=== PATIENT | female | born 1965 | race Caucasian/White ===

== ENCOUNTER 2023-01-31 11:14 | Outpatient (OUT) | payer BC, SELFPAY ==
--- NOTE | 2023-01-31 11:28 | XR_ITS ---
The [address] [address] Patient Name: BART BUSBY MRN: [id number] date: 1965 Sex: F Assigned Patient Location: [facility] Current Patient Location: Accession/Order Number: [id number] Exam Date: 01/31/2023 11:45 Report Date: 02/01/2023 08:10 At the request of: VIVIENNE DOTY Procedure: XR foot RT min 3V PROCEDURE: XR foot RT min 3V HISTORY: pain in rt foot M79.671 ; chronic lateral right foot pain increasing in severity COMPARISON: XR foot right 08/01/2019 FINDINGS: BONES:Prominent calcaneal plantar spur. No fracture, dislocation, bone lesion. No significant joint space narrowing or irregularity. SOFT TISSUES:No visible soft tissue swelling. EFFUSION:None visible. OTHER: Negative. XR/XR foot RT min 3V IMPRESSION: 1. Large plantar spur of uncertain clinical significance. 2. No acute bone abnormality or significant degenerative joint disease. Electronically authenticated by: CAROLYN MÉNDEZ Date: 02/01/2023 08:10
== END 2023-01-31 11:15 | disposition home or self-care (01) ==
LOC: RAD 11:23
PROVIDERS: PCP Family Medicine; Visit Provider Family Medicine
DX: M79.671 Pain in right foot (principal)
CPT/HCPCS: 73630

== ENCOUNTER 2023-02-13 09:46 | Outpatient (OUT) | payer BC, SELFPAY ==
--- NOTE | 2023-02-13 | XR_ITS ---
The [address] [address] Patient Name: BART BUSBY MRN: [id number] date: 1965 Sex: F Assigned Patient Location: [facility] Current Patient Location: Accession/Order Number: [id number] Exam Date: 02/13/2023 09:50 Report Date: 02/14/2023 11:01 At the request of: SRIKANTH SOSA Procedure: XR foot RT min 3V PROCEDURE: XR foot RT min 3V COMPARISON: None. HISTORY: RIGHT FOOT PAIN FINDINGS: BONES:No acute fracture or dislocation. Mild degenerative change the first metatarsal-phalangeal joint. SOFT TISSUES:Negative. No visible soft tissue swelling. EFFUSION:None visible. OTHER: Limited, no lateral projection XR/XR foot RT min 3V IMPRESSION: No acute abnormality Electronically authenticated by: LEIDY MONSIVAIS Date: 02/14/2023 11:01
--- OUTSIDE RECORDS SUMMARY | 2023-02-13 09:49 | XMS_ITS | CCD ---
Author Name Unknown Address [address] [place] [address] Organization [facility] Care Team Providers Care Computer Game Tester Name Role Phone NONE, XXXX Primary Care Physician Unavailab lina DIA, DR PALAFOX Admitting Unavailable SOREN, DR PALAFOX Primary Care Unavailable SOREN, DR PALAFOX Consulting Unavailable SOREN, DR PALAFOX Attending Unavailable SOREN, DR PALAFOX Primary Care Unavailable SOREN, DR PALAFOX Consulting Unavailable SOREN, DR PALAFOX Attending Unavailable SOREN, DR PALAFOX Admitting Unavailable WEST, DR FORBES Consulting Unavailable MD Vivienne Dia Primary Care Provider [phone] PARAS Reed Emergency Provider Sim Reed Attending Unavailable Sim Reed Admitting Unavailable Vivienne Dia Primary Care Unavailable Medications Current Medications Medication Drug Class(es) Dates Sig (Normalized) Sig (Original) [id number] 200 actuat albuterol 0.09 mg/actuat metered dose inhaler (1 source) beta2-Adrenergic Agonist Start: 02-14-2022 Albuterol Sulfate Active 2 INH INHALATION Q6H February 14, 2022 12:00am administer with spacer predniSONE 20 mg oral tablet (1 source) Start: 02-14-2022 take 40 mg by mouth once daily at mealtime Prednisone Active 40 MG PO Daily February 14, 2022 12:00am administer with food or milk Problems Problem Classification Problem Date Documented Da te Episodic/Chronic Chronic obstructive pulmonary disease and bronchiectasis (1 source) Bronchitis; Translations: [Bronchitis, not specified as acute or chronic] 02-14-2022 Episodic Other screening for suspected conditions (not mental disorders or infectious disease) (4 sources) Encounter for screening mammogram for malignant neoplasm of breast; Translations: [ENC SCR MAMMO MALIG NEOPLASM BREAST] Onset: 01-12-2022 Episodic Unclassified (1 source) Cough, unspecified; Translations: [Cough, unspecified] Onset: 02-14-2022 Results Test Name Value Interpretation Reference Range Facility COVID CepheidOrdered By: Nahum Reed on 02-14-2022 SARS-CoV-2 (COVID-19) Ab IA Ql Negative Negative [facility] Comment on above: This is a duplicate Cepheid Xpert Xpress CoV-2/Flu/RSV Plus RNA by RT-PCR result to be used for statistical tracking purpose only. SARS-CoV-2 (COVID-19) RNA DEACON+probe Ql (Unsp spec) [facility] COVID-19 / Flu A/B / RSV PCR on 02-14-2022 SARS-CoV-2 (COVID-19) RNA DEACON+probe Ql (Unsp spec) COVID-19 Cepheid Result Negative for SARS-CoV-2 RNA by RT-PCR Flu A Cepheid Result Negative for Flu A RNA by RT-PCR Flu B Cepheid Result Negative for Flu B RNA by RT-PCR RSV Cepheid Result Negative for RSV RNA by RT-PCR COVID19 Blank Space Reference: Negative COVID19 Blank Space Cepheid Disclaimer The Cepheid Xpert Xpress CoV-2/Flu/RSV Plus has Cepheid Disclaimer not been FDA cleared or approved; this test has Cepheid Disclaimer been authorized by FDA under an EUA for use by Cepheid Disclaimer authorized laboratories; this test has been Cepheid Disclaimer authorized only for the simultaneous qualitative Cepheid Disclaimer detection and differentiation of nucleic acids from Cepheid Disclaimer SARS-CoV-2, influenza A, influenza B, and Cepheid Disclaimer respiratory syncytial virus (RSV), and not for any Cepheid Disclaimer other viruses or pathogens; and this test is only Cepheid Disclaimer authorized for the duration of the declaration that Cepheid Disclaimer circumstances exist justifying the authorization of Cepheid Disclaimer emergency use of in vitro diagnostic tests for Cepheid Disclaimer detection and/or diagnosis of COVID-19 under Cepheid Disclaimer Section 564(b)(1) of the Act, 21 U.S.C. 360bbb- Cepheid Disclaimer 3(b)(1), unless the authorization is terminated or Cepheid Disclaimer revoked sooner. PERFORMED BY: [place] [address] PATHOLOGIST FIRE SAFETY MANAGER BIANKA POWERS M.D. Normal [facility] Comment on above: Performed By: #### C EPHEID NEG, COVID19 FLU RSV #### [address] Cepheid COVID PCR Negativeon 02-14-2022 SARS-CoV-2 (COVID-19) RNA DEACON+probe Ql (Unsp spec) Negative Normal Negative [facility] Comment on above: Result Comment: This is a duplicate Cepheid Xpert Xpress CoV-2/Flu/RSV Plus RNA by RT-PCR result to be used for statistical tracking purpose only. PERFORMED BY: [place] [address] PATHOLOGIST FIRE SAFETY MANAGER BIANKA POWERS M.D. Performed By: #### C EPHEID NEG, COVID19 FLU RSV #### [address] XR chest 2V*on 02-14-2022 XR chest 2V* [facility] [place] [address] XRay Report Signed Patient: Bart Busby MR#: [id number] 1442 : 1965 Acct:[id number] Age/Sex: 56 / F ADM Date: 02/14/22 Loc: ER Room: Type: PRE ER Attending Dr: Copies to: Sim Reed APRN Ordering Provider: Sim Reed APRN Date of Service: 02/14/22 XR/XR chest 2V*: Shortness of Breath/Dyspnea Chest 2 views CLINICAL HISTORY: Shortness of breath. COMPARISON: None FINDINGS: Heart normal in size. Lingular atelectasis/scarring . No consolidation pneumothorax pleural effusion or free air. XR/XR chest 2V* IMPRESSION: LINGULAR ATELECTASIS/SCARRING . NO CONSOLIDATION TO SUGGEST PNEUMONIA. Impression dictated by: Oswaldo Woodruff Jr., D.OToribio02/14/2022 11:53 AM Dictation Location: [place] [address] Transcribed By: [facility] 02/14/22 1153 Dictated By: Oswaldo Woodruff Jr, DO 02/14/22 1152 Signed By: 02/14/[address] [facility] MG MAMM SCREEN 3D JUSTINE CADon 01-12-2022 MG MAMM SCREEN 3D JUSTINE CAD Patient: BART BUSBY Exam Date: 01/12/2022 : 1965 Gender:F Ordering : DR VIVIENNE DIA . Admission #: [id number] Family : Order #: [id number] CLICK HERE TO VIEW EXAM RADIOLOGY REPORT PROCEDURE: MAMMOGRAM SCREENING 3D BILATERAL CAD COMPARISON: MG MAMM JUSTINE SCRN W CAD DIG, 08/17/2015. MG MAMM SCREEN 3D JUSTINE CAD, 10/01/2020. INDICATIONS: Screening mammography Calculator Name NCI Breast Cancer Risk Assessment Tool 5 Year Breast Cancer Risk 1.10% Lifetime Breast Cancer Risk 6.30% Personal Breast Cancer No Personal Ovarian Cancer No Treatments None Family Cancers Aunt-paternal with breast cancer at age 60; Aunt-paternal with breast cancer at age 70; Mother with lung cancer at age 62. LOCATION: [facility] BREAST COMPOSITION: Heterogeneously dense,which may obscure small masses. FINDINGS: DIAGNOSTIC CATEGORY 1--NEGATIVE. NO CHANGE FROM COMPARISON ASSESSMENT. Scattered benign-appearing calcifications are present. Scattered benign-appearing lymph nodes are present. RIGHT BREAST: No significant suspicious finding. LEFT BREAST: No significant suspicious finding. RECOMMENDATIONS: ROUTINE MAMMOGRAM AND CLINICAL EVALUATION IN 12 MONTHS. PLEASE NOTE: A NORMAL MAMMOGRAM DOES NOT EXCLUDE THE POSSIBILITY OF BREAST CANCER. A CLINICALLY SUSPICIOUS PALPABLE LUMP SHOULD BE BIOPSIED. Dictated by: Avni Gonzalez MD on 01/12/2022 at 14:34 Approved by: Avni Gonzalez MD on 01/12/2022 at 14:36 Normal [facility] INSULINon 01-06-2022 Insulin 11.4 uIU/mL Normal 2.6-24.9 [facility] Comment on above: Performed By: #### I NSULIN #### [facility] [address] [place] [address] Dr. Irving Salgado CBC AUTO DIFFon 01-04-2022 BASO # 0.1 103/ul Normal 0.0-0.1 [facility] Comment on above: Performed By: #### C BC #### [facility] [address] [place] [address] Dr. Irving Salgado Basophils/100 WBC (Bld) 0.8 % Normal 0.2-2.0 [facility] Comment on above: Performed By: #### C BC #### [facility] [address] [place] [address] Dr. Irving Salgado EO # 0.1 103/ul Normal 0.0-0.7 [facility] Comment on above: Performed By: #### C BC #### [facility] [address] [place] [address] Dr. Irving Salgado Eosinophils/100 WBC (Bld) 2.2 % Normal 0.9-7.0 [facility] Comment on above: Performed By: #### C BC #### [facility] [address] [place] [address] Dr. Irving Salgado Erythrocyte distribution width (RBC) [Ratio] 13.2 % Normal 11.0-15.0 [facility] Comment on above: Performed By: #### C BC #### [facility] [address] [place] [address] Dr. Irving Salgado Hematocrit (Bld) [Volume fraction] 42.1 % Normal 36.0-48.0 [facility] Comment on above: Performed By: #### C BC #### [facility] [address] [place] [address] Dr. Irving Salgado Hemoglobin (Bld) [Mass/Vol] 13.7 g/dL Normal 12.0-16.0 [facility] Comment on above: Performed By: #### C BC #### [facility] [address] [place] [address] Dr. Irving Salgado IG # 0.03 10e3/ul Normal 0.00-0.03 [facility] Comment on above: Performed By: #### C BC #### [facility] [address] [place] [address] Dr. Irving Salgado IG % 0.5 % Normal 0.0-0.5 [facility] Comment on above: Performed By: #### C BC #### [facility] [address] [place] [address] Dr. Irving Salgado LYMPH # 2.0 103/ul Normal 1.2-3.8 [facility] Comment on above: Performed By: #### C BC #### [facility] [address] [place] [address] Dr. Irving Salgado Lymphocytes/100 WBC (Bld) 31.7 % Normal 20.5-60.0 [facility] Comment on above: Performed By: #### C BC #### [facility] [address] [place] [address] Dr. Irving Salgado MANUAL DIFF REQ NO Normal [facility] Comment on above: Performed By: #### C BC #### [facility] [address] [place] [address] Dr. Irving Salgado MCH (RBC) [Entitic mass] 30.2 pg Normal 26.7-34.0 [facility] Comment on above: Performed By: #### C BC #### [facility] [address] [place] [address] Dr. Irving Salgado MCHC (RBC) [Mass/Vol] 32.5 g/dL Normal 29.9-35.2 [facility] Comment on above: Performed By: #### C BC #### [facility] [address] [place] [address] Dr. Irving Salgado MCV (RBC) [Entitic vol] 92.9 fL Normal 81.0-99.0 [facility] Comment on above: Performed By: #### C BC #### [facility] [address] [place] [address] Dr. Irving Salgado MONO # 0.6 103/ul Normal 0.3-0.8 [facility] Comment on above: Performed By: #### C BC #### [facility] [address] [place] [address] Dr. Irving Salgado Monocytes/100 WBC (Bld) 9.9 % Normal 1.7-12.0 [facility] Comment on above: Performed By: #### C BC #### [facility] [address] [place] [address] Dr. Irving Salgado NEUT # 3.4 103/ul Normal 1.4-6.5 [facility] Comment on above: Performed By: #### C BC #### [facility] [address] [place] [address] Dr. Irving Salgado Neutrophils/100 WBC (Bld) 54.9 % Normal 43.0-75.0 [facility] Comment on above: Performed By: #### C BC #### [facility] [address] [place] [address] Dr. Irving Salgado Platelet mean volume (Bld) [Entitic vol] 10.0 fL Normal 9.5-13.5 [facility] Comment on above: Performed By: #### C BC #### [facility] [address] [place] [address] Dr. Irving Salgado PLT 252 103/ul Normal 150-450 [facility] Comment on above: Performed By: #### C BC #### [facility] [address] [place] [address] Dr. Irving Salgado RBC 4.53 106/ul Normal 4.20-5.40 [facility] Comment on above: Performed By: #### C BC #### [facility] [address] [place] [address] Dr. Irving Salgado WBC 6.2 103/ul Normal 4.0-11.0 [facility] Comment on above: Performed By: #### C BC #### [facility] [address] [place] [address] Dr. Irving Salgado FREE THYROXINE INDEX T7on FTI 2.31 Normal 1.30-4.50 [facility] Comment on above: Performed By: #### T SH, T7, LIPID, CMP #### [facility] [address] [place] [address] Dr. Irving Salgado T3U 30.0 % Normal 30.0-39.0 [facility] Comment on above: Performed By: #### T SH, T7, LIPID, CMP #### [facility] [address] [place] [address] Dr. Irving Salgado T4 [Mass/Vol] 7.70 ug/dL Normal 4.80-13.90 [facility] Comment on above: Performed By: #### T SH, T7, LIPID, CMP #### [facility] [address] [place] [address] Dr. Irving Salgado GLYCOHEMOGLOBIN A1Con 2021 ADA RECOMMENDATION SEE BELOW Normal [facility] Comment on above: Result Comment: ADA RECOMMENDED LIMIT 4.0 - 6.0 ADA THERAPEUTIC TARGET < 7.0 ACTION SUGGESTED > 7.0 Performed By: #### A 1C #### [facility] [address] [place] [address] Dr. Irving Salgado Glucose [Mass/Vol] 117 mg/dL Normal [facility] Comment on above: Performed By: #### A 1C #### [facility] [address] [place] [address] Dr. Irving Salgado HbA1c (Bld) [Mass fraction] 5.7 % Normal 4.5-6.2 [facility] Comment on above: Performed By: #### A 1C #### [facility] [address] [place] [address] Dr. Irving Salgado LIPID PROFILEon 01-04-2022 CHOL-HDL RATIO NORM SEE BELOW Normal [facility] Comment on above: Result Comment: 3.3 - 4.4 LOW RISK 4.4 - 7.1 AVERAGE RISK 7.1 - 11.0 MODERATE RISK >11.0 HIGH RISK Performed By: #### T SH, T7, LIPID, CMP #### [facility] [address] [place] [address] [address] Irving Salgado Cholesterol [Mass/Vol] 230 mg/dL Critically high <=200 [facility] Comment on above: Performed By: #### T SH, T7, LIPID, CMP #### [facility] [address] [place] [address] [address] Irving Salgado Cholesterol in HDL [Mass/Vol] 68 mg/dL Critically high 40-60 [facility] Comment on above: Performed By: #### T SH, T7, LIPID, CMP #### [facility] [address] [place] [address] [address] Irving Salgado Cholesterol in LDL [Mass/Vol] 143.8 mg/dL Normal [facility] Comment on above: Performed By: #### T SH, T7, LIPID, CMP #### [facility] [address] [place] [address] [address] Irving Salgado Cholesterol.total/Ch olesterol in HDL [Mass ratio] 3.4 {ratio} Normal [facility] Comment on above: Performed By: #### T SH, T7, LIPID, CMP #### [facility] [address] [place] [address] [address] Irving Salgado HDL NORMAL > or = 60 mg/dl - LOW CARDIOVASCULAR RISK <40 mg/dl - HIGH CARDIOVASCULAR RISK Normal [facility] Comment on above: Performed By: #### T SH, T7, LIPID, CMP #### [facility] [address] [place] [address] [address] Irving Salgado LDL CALC NORMAL SEE BELOW Normal [facility] Comment on above: Result Comment: <100 mg/dl OPTIMAL 100 - 129 mg/dl NEAR OR ABOVE OPTIMAL 130 - 159 mg/dl BORDERLINE HIGH 160 - 189 mg/dl HIGH >190 mg/dl VERY HIGH Performed By: #### T SH, T7, LIPID, CMP #### [facility] [address] [place] [address] [address] Irving Salgado Triglyceride [Mass/Vol] 91 mg/dL Normal <=150 [facility] Comment on above: Performed By: #### T SH, T7, LIPID, CMP #### [facility] [address] [place] [address] [address] Irving Salgado VLDL CALC 18.2 mg/dL Normal [facility] Comment on above: Performed By: #### T SH, T7, LIPID, CMP #### [facility] [address] [place] [address] [address] Irving Salgado PROF 14(COMP METB)on 022 Albumin [Mass/Vol] 3.7 g/dL Normal 3.4-5.0 [facility] Comment on above: Performed By: #### T SH, T7, LIPID, CMP #### [facility] [address] [place] [address] [address] Irving Salgado Albumin/Globulin [Mass ratio] 1.0 {ratio} Normal [facility] Comment on above: Performed By: #### T SH, T7, LIPID, CMP #### [facility] [address] [place] [address] Dr. Irving Salgado ALP [Catalytic activity/Vol] 100 U/L Normal 46-116 [facility] Comment on above: Performed By: #### T SH, T7, LIPID, CMP #### [facility] [address] [place] [address] [address] Irving Salgado ALT [Catalytic activity/Vol] 17 U/L Normal 14-59 [facility] Comment on above: Performed By: #### T SH, T7, LIPID, CMP #### [facility] [address] [place] [address] [address] Irving Salgado Anion gap [Moles/Vol] 10.1 mmol/L Normal [facility] Comment on above: Performed By: #### T SH, T7, LIPID, CMP #### [facility] [address] [place] [address] [address] Irving Salgado AST [Catalytic activity/Vol] 15 U/L Normal 15-37 [facility] Comment on above: Performed By: #### T SH, T7, LIPID, CMP #### [facility] [address] [place] [address] [address] Irving Salgado Bilirubin [Mass/Vol] 0.5 mg/dL Normal 0.2-1.0 [facility] Comment on above: Performed By: #### T SH, T7, LIPID, CMP #### [facility] [address] [place] [address] [address] Irving Salgado Calcium [Mass/Vol] 9.3 mg/dL Normal 8.5-10.1 [facility] Comment on above: Performed By: #### T SH, T7, LIPID, CMP #### [facility] [address] [place] [address] Dr. Irving Salgado Chloride [Moles/Vol] 102 mmol/L Normal 98-107 [facility] Comment on above: Performed By: #### T SH, T7, LIPID, CMP #### [facility] [address] [place] [address] Dr. Irving Salgado CO2 [Moles/Vol] 30.1 mmol/L Normal 21.0-32.0 [facility] Comment on above: Performed By: #### T SH, T7, LIPID, CMP #### [facility] [address] [place] [address] Dr. Irving Salgado Creatinine [Mass/Vol] 0.93 mg/dL Normal 0.55-1.02 [facility] Comment on above: Performed By: #### T SH, T7, LIPID, CMP #### [facility] [address] [place] [address] Dr. Irving Salgaod EGFR-AF PAPUA [place] >60 Normal >=60 [facility] Comment on above: Performed By: #### T SH, T7, LIPID, CMP #### [facility] [address] [place] [address] Dr. Irving aSlgado EGFR-NON AF P[place] >60 Normal >=60 [facility] Comment on above: Performed By: #### T SH, T7, LIPID, CMP #### [facility] [address] [place] [address] Dr. Irving Salgado Globulin (S) [Mass/Vol] 3.7 g/dL Normal [facility] Comment on above: Performed By: #### T SH, T7, LIPID, CMP #### [facility] [address] [place] [address] Dr. Irving Salgado Glucose [Mass/Vol] 92 mg/dL Normal 74-106 [facility] Comment on above: Performed By: #### T SH, T7, LIPID, CMP #### [facility] [address] [place] [address] [address] Irving Salgado Potassium [Moles/Vol] 4.2 mmol/L Normal 3.5-5.1 [facility] Comment on above: Performed By: #### T SH, T7, LIPID, CMP #### [facility] [address] [place] [address] [address] Irving Salgado Protein [Mass/Vol] 7.4 g/dL Normal 6.4-8.2 [facility] Comment on above: Performed By: #### T SH, T7, LIPID, CMP #### [facility] [address] [place] [address] Dr. Irving Salgado Sodium [Moles/Vol] 138 mmol/L Normal 136-145 [facility] Comment on above: Performed By: #### T SH, T7, LIPID, CMP #### [facility] [address] [place] [address] Dr. Irving Salgado Urea nitrogen [Mass/Vol] 18.0 mg/dL Normal 7.0-18.0 [facility] Comment on above: Performed By: #### T SH, T7, LIPID, CMP #### [facility] [address] [place] [address] Dr. Irving Salgado Urea nitrogen/Creatinine [Mass ratio] 19.4 mg/mg Normal [facility] Comment on above: Performed By: #### T SH, T7, LIPID, CMP #### [facility] [address] [place] [address] Dr. Irving Salgado TSHon 01-04-2022 TSH 2.920 uIU/mL Normal 0.358-3.740 [facility] Comment on above: Performed By: #### T SH, T7, LIPID, CMP #### [facility] [address] [place] [address] Dr. Irving Salgado XR Foot Complete Right*on XR Foot Complete Right* CLINICAL HISTORY: Pain COMPARISON: None available. FINDINGS: AP, lateral and oblique views of the left foot demonstrate no evidence of a fracture, dislocation, bone or joint abnormality. There is a small plantar calcaneal spur. IMPRESSION: NEGATIVE LEFT FOOT. Report reported and signed by CARINA VIZCARRA on 10/05/2021 1331 Normal [facility] Crane Crew Supervisor Coding Summary.on 05-23-2021 Coding Summary. CD:[id number] Gh0bWw+PGhlYWQ+PE1FV TIxC64ixOUnbZ2TU8jTR B6IUWKETAWTOJ4AYP6gt WJ4JOztR1LxksCl QbgxuVXeVH16DOe4HML1 vMefBKfytF3riNGkP4q0 BiAgNP37nZ12ZLunXADo ZwQ8SwPkrogjwABa Q0emFlPaaMYoFed+PHRh YmxlIHdpZHRoPScxMDAl DjZpyZmaDH5jBv2zEMLf LWNvbGxhcHNlOiBj f9ulXLOmFLbvAT9cyUlo Z6YthDF9OYPku9z8Yy59 dHI+KYEeJEX1aLxwVRjf p451YlGjw2mkMIE8 yKGsYKqkVKP4U53ql7S7 SYCiAQMvHIO7vQV8sM4t hLlfdxtvV3QffQSnLnQ0 RSY3zCFygM7kiEnx bchmxX9kDgx+D07NLC5J BETEZN8PYfg3D7RgAgxp dHI+KF11PWVlVU82uAKb dNEpm4dqfRy6JrGe IADxLMM3hLopCMgam2Ic KBFeM65ccPRpo4Y7TCIg mLkvkKPpLqKaqHZ7sM5m ALfrzpkxd0osntgi Sxyro9wgsp10iR86Z99b RIykWJTdITH1TZDsTRZp bRvwyz5nnU3sLy8+IDxj d5oks0xtsYx1ShIp BDGjsbZhvJvtJDP7x4Er Uy48G6PucQcyr6HyHep3 kk13nHRjg4T3nTX0TTmc TELffA6wLNavQlK1 PTEbBrHcxC03jQFjGWbs Ey0jqIveuLhcWI7yHTZi ujtgGSPnzU9aIGTzbVWs tQuzWF2qUPJwjljk a237AuSpNHC2EYAdvBLn X2ApnN8vQjVzWDQrARJi F7KedDBqRHesV531WZsv VhH6DPRagmRmR1Uu FILntNrfSiO4p0E9Ou1M b1KkikkxDPG8KDfvSNN5 JgOkTtNmEvT4Q2KzJgz0 PLSevDfqZP3yF1Yy PQQvtyyaqbhsgZJ3AWXt KFMzgD54kJIjHJybEy8m a5A5h271QHRsTJZjbP42 Eu5jnQiaIWAiaGAC eW0fvudao5bylohyElXz GPYvRGx4WXw2DVRxjXuz XpJgDRT5NdS7XRE6kJBv pQ9vdFkqwufwqL9c Oyc+Y65wiR4kPOU0QOU6 jgzrGXKvlkXhBS14KJ17 J5AlSgdndGTjfDG+PGRp dqTprKqeXW3bPnCo h9qqv5DqMAedX4HxXDIg FMpoSrc4RYHlVER8lQX8 eI4zHTOrRTcti6F2wSC1 Z8PvssNwqm6je7fw UHLeUFvgP81hjXMik1A5 XVFfyWS7IQPdrExeQmUm tB45Xwu+KWIhgFegz0Vg Mdgmq4oxy6fzlKg5 IjMwJSIgdmFsaWduPSJ0 l8UuZe13W78eMMysGXUe QJUvKWNeEHFeaQvwpz2m sD6lRl1+PGNvbCB3 aAW7bH6gQPUsTgK6NDfn G560UpOvbEFpZiibo6mk a0svjKs7QbIxULMuqyIl hIheGGV1k0KwHw83 C38gEDdiNQKrLMMxTLYd ICNzpVlkmz4qoJ6hHm6+ RM4as0cyet68rU17pBF+ LGPxGEF3bHjwJPnr IPLwdF1fECzeUeQ6BEXa WyYywJ59aYOtTYhuAi3s nXqmkIcbXH3kUTYzfazq q904PwLoe6fpUKNh iJSlAYcbWBA7D10tm3L2 WSJfDJNjXIK8cQW5pF8d bGlnbjogbGVmdDsgdmVy lQfiUWlxXBdlU220 IHRvcDsnPlBhdGllbnQg FnJzTPd6W0ZgCkn8SSQk bRdeIH1gbMUyPNevXp2z zKmvnZqrMJ4oHNPk hqpjl875BvJuf2shOZZr yQBjKZygMDG8L64fz9Y5 DJBbUBGaEFA2qPU8fF2z bGlnbjogbGVmdDsg urZptDdpWKfvEEmrT022 IHRvcDsnPkJpcnRoIERh nFY7SZ46PI97mUKfm8P1 dXQ9B2BxECZdtqwb mziidEX2NGYnTIDabO35 My5dmCzxXz2oGZUjXPB3 AWTeaBVaU5SbsG8fHxVe TUGeKDCfW7DkvDSu MOjzK007YHxtXuZ6RUHl reXwC1EnDRIvtVvkTsI4 u7R5Mp1MK9E7JR94UQ16 cMGiy1Z3nAS1P7Jw ZNYbkfylzjvfvLK7MPDh DYTqbM87Og9caCorFo2l HSMdBAJ7RFSkrLVjW8Va fP3fNnWcHFYjWDOl S0YcgCTnUEanB903VEax QjU4RFBtaeYeR0FsBSMk eRspQjX8q5D6Sp4QVDf2 MD89YK55yYPau6D1 tDY4X4WoYWSttauuzewc rHR3RLFsYAAdtD89Ly6s zKbuBg8lLVZtKBV7SGJj eXAfX1CocW5lJaVd YFHnZOXpN6JtsOWaNPky P384DYerPtT2YUSorgWc R8WkMPLtlBvaGhF9u1Z7 Iy9BVMGmYY84LTI1 sKG2IE30NV25J0MhYcfq dGFibGU+PHRhYmxlIHdp ZHRoPScxMDAlJyBzdHls LT7jBt0dXKXuYWOx qRfxdYMzQhGzg4vdPLYp FCaoEX3deDyvY2EsqZP5 RIPvh6g1Wc28C76bW1Xq dXA+TVXtgFM5wTE3 yJ6dRtAtZwU8YEgaH405 IaKozVIiOptlz1htw6qf vDx4BcT1NNXpjkIbrYch KLY6f8UbNo44O10e IHdpZHRoPSIxNSUiIHZh gEqlcv1juX4jPd9+PGNv eJV7yDD7mO7tGvLmMxL1 RFygN138VdPltHAl Fvoob5xnt0ukoHk6DkHy TAIltgQbcLviAWU1y5Vx Ph06Z4JzxIjfx2CbEmb1 dk85qRQeo0S1tKC5 V4UhEHTuwrkeyGBjtLwj YN0qSLKoyoaiZIFtvJ8l BUIqZ7s7TxZjFnJ0UBky B3JgqfS3IUPqjVPj NIbuOFR9T03wu0G3GSRi GJRiCXU7pSE8lF0naWto bjogbGVmdDsgdmVydGlj ARgaNAtdB945XCMv kHkwEWMfcZ6uYEHrmFNx gDdvLF6aRVAizrnmQlsR W91VBydvXNZHJIcQYjWG XA86VN23gHEke5J8 bXM2S7AtVVHphrnicgop tWK4NDAgNHUuvU01aQYb SAfqWm9bn9N5t812HFHj OUDliO61Ui5fdVyv MMHeiBVBjS4vmeekf0zt nuhlLzKkBRHeWEx3TOn9 TBOitKkeBuWkAIE0LvW6 UGF6fWCehS4fcCcs xoqpaS9dAqw+MDIvMTYv WFu2CBbcjEX+PHRkIHN0 zPvmZKmvGOLqfF4bLJEs E2q6HyRfSfM4KFht E2ZfSNYvnmuhPb76fE9q OuYjSeC9NQamQ6WxcyS2 MINpuMCfNQcaEHQ0P46c r0M7VBEvQROsSFQ3 aFT9wO4ooQoguqzlvECr dDsgdmVydGljYWwtYWxp E955DWWsoYmjJdN3YGxg SWYbPY86GV08vGQu i3R0tJK8H7GuZFQxjgom saefhQQ2RCJwHZVxqJ77 kPYyMWbmNs8dq9I4k047 RCIhQGBcwU19Kl6f eGfuXISscSVVhH2urjrz q8zsvkmeLkLnPTZtQOw6 TSm6HHHidWcdLbXeYBJ5 OfB7ITT3mFOryQ4q wJabxnsyzC8vSlu+RmVt PJsrKM28MI64gCKyo5X1 bCK0G7EqRCTgbpmleqjh sGZ3NSAdSZUujD24 rFYbLSsoJg2if8Y3s829 FTHiFSJvvR71Yz8flEbr SWUjrIEXjK5nmmvfk7rv cjogIzAwMDAwMDt0 WCy6XQLeaOkgPxZiUFD1 RmW2UFG3dTVkfU0nvOdc qzlbyH2zKnu+TGFiIERy g6Wvo5RvAF97IK19 I9HpVsftnDJeeIF+PHRh YmxlIHdpZHRoPScxMDAl HaCihNptXI6vRw0mEKXd LWNvbGxhcHNlOiBj o4baVCHiLYzjTF3cyUhz D6LitVF0RUItq3u6Ox91 V27sV4RlxJW+PGNvbCB3 uBT3pQ7tBeReHlY9 VBhzS937HlEtpNIjSjph n3bve2zrnVk0XpPsLSIg seZaeYkyAPV1u4PhId39 J48nCYmkZHGuYGSx WLFiWTRhvFzxsw3lkB2g Ii8+CJIenPR6uOO2xK0m FzSkFyB9LXisY006GsAt vCHcSjnuG99sG1Zj dXA+FOJmWgj8KIJtkTah OE2lfYAmHFtlEj1wXPR9 EfWcEwWfHQgdG5BlVUPe ckwqxouusXC3STWf GEIkdC24Bk8jtWnzSi9h EJSrWCM8HTYobDWrK7Kl iD2qKwOsUJOwSNCeR9Mi wSTiRLwvV451NLqs UtH4UMElftVkC5BjLQIr aHhtLlC1s6Y7Ma9PbFis xZKeIX0hLdQgACf3Q5Ax Hcn0XFBsdMpdGU8y pHTsPKqqOh5fzEezuZbx WB6aRNHiqzfpu331DnQn t5jkMRHjhMQaJZubSRD9 Y21zc5E6OGRaPRDo PFE3yYB7iK5grFyjsquk bGVmdDsgdmVydGljYWwt BBqxK836DWCncNylTaYK Adp8K9YkFyp1GHSh kGnvKZ0qrKLhUEexSz0i cWhbkVktMW9bHKBaduab t128GlHer5snCJSohESe OXwuDWX9Q18hi7S6 SYAbMAEjPKE1nBF7kA9f bGlnbjogbGVmdDsgdmVy qEhfVHjqWPwpT277FJSl uKwrNm6TLuw4U8Va Pgi4EPIwtZniRI7pyCUr PIshKx2qdQowsBkgWG8e MXQjubgeq948SrDaj6sv IDEwcHQgVGltZXM7 W25kv2G5BSMqLVXxPUA5 fSG0gT5egKgqpvrhtTVr dDsgdmVydGljYWwtYWxp X464PZSviFqxZoHb eWVyOjwvdGQ+WW09jp78 E8MgLethMtv6SAWvEEL3 vSD1wG0dUHKnMZgky7Y4 mWE1J4NrnmErdl0l b2xs (more content not included)... Normal [facility] PAP [id number] 05-17-2021 Cytology report Cyto stain Doc (Cvx/Vag) Note Invalid Interpretation Code [facility] Comment on above: Result Comment: TEST S RESULT FLAG UNITS REF RANGE LAB Clinician Provided Cytology Information Source.............Endocervix No. of containers..01 ThinPrep Vial DIAGNOSIS: 01 NEGATIVE FOR INTRAEPITHELIAL LESION OR MALIGNANCY. Specimen adequacy: 01 Satisfactory for evaluation. Endocervical and/or squamous metaplastic cells (endocervical component) are present. Performed by: Tran Hernandez, [employer] . 01 Note: Note 01 The Pap smear is a screening test designed to aid in the detection of premalignant and malignant conditions of the uterine cervix. It is not a diagnostic procedure and should not be used as the sole means of detecting cervical cancer. Both false-positive and false-negative reports do occur. Test Methodology: Note 01 This liquid based ThinPrep(R) pap test was screened with the use of an image guided system. FLAG LEGEND: L-Low Normal,H-High Normal,LL-Alert Low,HH-Alert High <-Panic Low,>-Panic High,A-Abnormal,AA-Critical Abnormal Performed at: [address] [id number] Geri Mora MD, Performed By: #### 1 [id number] #### [facility] [address] [place] [address] HPV 16+18+31+33+35+39+45 +51+52+56+58+59+66+6 8 DNA Probe+sig amp Ql (Cvx) Negative Invalid Interpretation Code Negative [facility] Comment on above: Result Comment: This nucleic acid amplification test detects fourteen high-risk HPV types (16,18,31,33,35,39,45,51,52,56,58,59,66,68) without differentiation. Performed at: [facility] [id number] MD Morgan Nevarez Performed at: =G [facility] [id number] MD Morgan Nevarez Performed By: #### 1 [id number] #### [facility] [address] [place] [address] PAP [id number] 05-11-2021 Collection Technique BRUSH-SPATULA Normal [facility] Comment on above: Performed By: #### 1 [id number] #### [facility] [address] [place] [address] Gynecological Body Site ENDOCERVIX Normal [facility] Comment on above: Performed By: #### 1 [id number] #### [facility] [address] [place] [address] Physician Orderon 05-11-2021 Physician Order [id number] 6#[id number]:127 Normal [facility] Vital Signs Date Time Vital Sign Value Performing Clinician Srikanth gant 02-14-2022 13:06-0500 Heart rate 93 /min MD Vivienne Dia Work Phone: [facility] 02-14-2022 13:06-0500 SaO2% (BldA) [Mass fraction] 95 % MD Vivienne Dia Work Phone: [facility] 02-14-2022 10:50-0500 Body temperature 98.3 [degF] MD Vivienne Dia Work Phone: [facility] 02-14-2022 10:50-0500 Diastolic blood pressure 84 mm[Hg] MD Vivienne Dia Work Phone: [facility] 02-14-2022 10:50-0500 Respiratory rate 20 /min MD Vivienne Dia Work Phone: [facility] 02-14-2022 10:50-0500 Systolic blood pressure 131 mm[Hg] MD Vivienne Dia Work Phone: [facility] 02-14-2022 10:49-0500 Body height 167.64 cm MD Vivienne Dia Work Phone: [facility] 02-14-2022 10:49-0500 Body weight 94.75 kg MD Vivienne Dia Work Phone: [facility] Encounters Encounter Date Encounter Type Care Provider Facility Start: 02-14-2022 End: 02-14-2022 Emergency department patient visit Sim Reed Facility:[facility] Start: 02-14-2022 End: 02-14-2022 Emergency department patient visit MD Vivienne Dia Work Phone: [facility] Work Phone: Start: 01-12-2022 End: 01-13-[address] VIVIENNE DIA Facility: Start: 01-09-2022 Encounter for genera l adult medical examination without abnormal findings DR VIVIENNE DIA [facility] Start: 01-04-2022 End: 01-05-[address] VIVIENNE DIA Facility:[facility] Start: 01-04-2022 End: 01-05-2022 Encounter for general adult medical examination without abnormal findings DR VIVIENNE DIA Facility:[facility] Start: 05-11-2021 End: 05-11-2021 Lab Drop off Ming J S[facility] Procedures Date Procedure Procedure Detail Performing Clinician Start: 02-14-2022 SARS-CoV-2, Influenz a & RSV (PCR) MD Vivienne Dia Work Phone: Start: 02-14-2022 Plain chest X-ray MD Saeed Work Phone: Plan of Treatment Date Care Activity Detail Author Patient Education Acute Bronchitis, Adult (DC) [facility] Work Phone: Patient referral [facility] Work Phone: Payers Date Payer Category Payer Self-pay 1965 Unknown [id number] [id number] [id number] 1965 Unknown [id number] [id number] 1961 Unknown [id number] Unknown [id number] [id number] Social History Date Type Detail Facility Tobacco smoking status [facility] Sex Assigned At Female [facility] Start: 02-14-2022 Tobacco smoking stat us NHIS Never smoked tobacco (finding) [facility] Start: 1965 Sex Assigned At Female [facility] Evaluation + Plan note 05-11-2021 Note Date & Type Note Facility 05-11-2021 Evaluation + Plan note Diagnostic Tests PendingPAP w/HPV 05/11/21 [facility] Evaluation note Note Date & Type Note Facility Evaluation note No assessment information availa ble [facility] Work Phone: Hospital course Narrative Note Date & Type Note Facility Hospital course Narrative No data available for this section [facility] Discharge instructions Note Date & Type Note Facility Hospital Discharge instructions No data available for this section [facility] Summary Purpose Family History No Family History Records FoundNo Family History Records FoundNo Family History Records FoundNo Family History Records Found Advance Directives No Advanced Directives Records Found Advance Directive Response Recorded Date/ Time Advance Directives No February 14, 2022 12:01pm Chief Complaint and Reason for Visit Chief Complaint cough,congestion Additional Source Comments INFORMATION SOURCE (unrecogn ized section and content) DATE CREATED AUTHOR 05/24/2021 [facility] DATE CREATED AUTHOR AUTHOR'S ORGANIZ ATION 10/08/2021 [facility] dical Specialist DATE CREATED AUTHOR AUTHOR'S ORGANIZ ATION 01/18/2022 [facility] pital DATE CREATED AUTHOR AUTHOR'S ORGANIZ ATION 02/27/[address] [facility] Care Teams (unrecognized sec tion and content) Team Status: Inactive Member Role Status Dates Vivienne Dia MD Primary Care Provider Active Sim Reed APRN Emergency Provider Active Team Status: Active Member Role Status Dates Vivienne Dia MD Primary Care Provider Active Goals (unrecognized section and content) Goals may be documented in a n alternate section FOR RECORDS PERTAINING TO PATIENTS WHO ARE OR HAVE BEEN ENROLLED IN A CHEMICAL DEPENDENCY/SUBSTANCEABUSE PROGRAM, SOME INFORMATION MAY BE OMITTED. This clinical summary was aggregated from multiple sources. Caution should be exercised in using it in the provision of clinical care. This summary normalizes information from multiple sources, and as a consequence, information in this document may materially change the coding, format and clinical context of patient data. In addition, data may be omitted in some cases. CLINICAL DECISIONS SHOULD BE BASED ON THE PRIMARY CLINICAL RECORDS. [facility] [employer] provides no warranty or guarantee of the accuracy or completeness of information in this document.
== END 2023-02-13 09:47 | disposition home or self-care (01) ==
LOC: RAD 09:46
PROVIDERS: PCP Family Medicine; Visit Provider Physician Assistant
DX: M79.671 Pain in right foot (principal)
CPT/HCPCS: 73630

== ENCOUNTER 2023-04-04 07:31 | Outpatient (OUT) | payer BC, SELFPAY ==
--- NOTE | 2023-04-04 07:33 | MR_ITS ---
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 Noncontrast MRI of the right foot. FINDINGS: Extensor, flexor and peroneal tendons are intact. Achilles tendon is thickened distally, consistent with Achilles tendinosis. (Sagittal PD fat-sat image 14) Plantar fascia is intact. No significant degeneration at the ankle joint or mid foot. Mild degeneration at the second tarsometatarsal joint. Normal alignment of the metatarsophalangeal joints and interphalangeal joints. Normal signal of the plantar musculature. No significant subcutaneous soft tissue edema about the foot or ankle. Anterior talofibular, posterior talofibular and calcaneofibular ligaments are intact. Anterior and posterior syndesmotic ligaments are intact. Deltoid ligament fibers are intact. MR/MR foot RT wo con IMPRESSION: 1. Thickening of the Achilles tendon, consistent with Achilles tendinosis. 2. Extensor, flexor and peroneal tendons are intact. 3. No acute ligamentous abnormality. 4. Mild degeneration at the second tarsometatarsal joint. 5. Other findings as described. Electronically authenticated by: ENID CURRY Date: 04/04/2023 22:49
--- OUTSIDE RECORDS SUMMARY | 2023-04-04 07:33 | XMS_ITS | CCD ---
Author Name Unknown Address [address] [place] [address] Organization [facility] Care Team Providers Care Power Equipment Mechanics Instructor Name Role Phone NONE, XXXX Primary Care Physician Unavailab lina DIA, DR PALAFOX Admitting Unavailable SOREN, DR PALAFOX Primary Care Unavailable SOREN, DR PALAFOX Consulting Unavailable SOREN, DR PALAFOX Attending Unavailable SOREN, DR PALAFOX Primary Care Unavailable SOREN, DR PALAFOX Consulting Unavailable SOREN, DR PALAFOX Attending Unavailable SOREN, DR PALAFOX Admitting Unavailable WEST, DR FORBES Consulting Unavailable MD Vivienne Dia Primary Care Provider [phone] PARAS Reed Emergency Provider Sim Reed Attending Unavailable Sim Reed Admitting Unavailable Vivienne Dia Primary Care Unavailable Medications Current Medications Medication Drug Class(es) Dates Sig (Normalized) Sig (Original) [id number] 200 actuat albuterol 0.09 mg/actuat metered dose [...] SARS-CoV-2 (COVID-19) Ab IA Ql Negative Negative [facility] Comment on above: This is a duplicate Cepheid Xpert Xpress CoV-2/Flu/RSV Plus RNA by RT-PCR result to be used for statistical tracking purpose only. SARS-CoV-2 (COVID-19) RNA DEACON+probe Ql (Unsp spec) [facility] COVID-19 / Flu A/B / RSV [...] or Cepheid Disclaimer revoked sooner. PERFORMED BY: [place] [address] PATHOLOGIST VARYING EXCEPTIONALITIES TEACHER BIANKA POWERS M.D. Normal [facility] Comment on above: Performed By: #### C EPHEID NEG, COVID19 FLU RSV #### [address] Cepheid COVID PCR Negativeon 02-14-2022 SARS-CoV-2 (COVID-19) RNA DEACON+probe Ql (Unsp spec) Negative Normal Negative [facility] Comment on above: Result Comment: This is a duplicate Cepheid Xpert Xpress CoV-2/Flu/RSV Plus RNA by RT-PCR result to be used for statistical tracking purpose only. PERFORMED BY: [place] [address] PATHOLOGIST VARYING EXCEPTIONALITIES TEACHER BIANKA POWERS M.D. Performed By: #### C EPHEID NEG, COVID19 FLU RSV #### [address] XR chest 2V*on 02-14-2022 XR chest 2V* [facility] [place] [address] XRay Report Signed Patient: Bart Busby MR#: [id number] : 1965 Acct:[id number] Age/Sex: 56 / F ADM Date: 02/14/22 [...] Woodruff Jr., D.OToribio02/14/2022 11:53 AM Dictation Location: [place] [address] Transcribed By: [facility] 02/14/22 1153 Dictated By: Oswaldo Woodruff Jr, DO 02/14/22 1152 Signed By: 02/14/22 1153 [facility] MG MAMM SCREEN 3D JUSTINE CADon 01-12-2022 MG MAMM SCREEN 3D JUSTINE CAD Patient: BART BUSBY Exam Date: 01/12/2022 : 1965 Gender:F Ordering : DR VIVIENNE DIA . Admission #: [id number] Family : Order #: [id number] CLICK HERE TO VIEW EXAM RADIOLOGY REPORT [...] lung cancer at age 60. LOCATION: [facility] BREAST COMPOSITION: Heterogeneously dense,which may obscure [...] MD on 01/12/2022 at 14:36 Normal [facility] INSULINon 01-06-2022 Insulin 11.4 uIU/mL Normal 2.6-24.9 [facility] Comment on above: Performed By: #### I NSULIN #### [facility] [address] [place] [address] Dr. Irving Salgado CBC AUTO DIFFon 01-04-2022 BASO # 0.1 103/ul Normal 0.0-0.1 [facility] Comment on above: Performed By: #### C BC #### [facility] [address] [place] [address] Dr. Irving Salgado Basophils/100 WBC (Bld) 0.8 % Normal 0.2-2.0 [facility] Comment on above: Performed By: #### C BC #### [facility] [address] [place] [address] Dr. Irving Salgado EO # 0.1 103/ul Normal 0.0-0.7 [facility] Comment on above: Performed By: #### C BC #### [facility] [address] [place] [address] Dr. Irving Salgado Eosinophils/100 WBC (Bld) 2.2 % Normal 0.9-7.0 [facility] Comment on above: Performed By: #### C BC #### [facility] [address] [place] [address] Dr. Irving Salgado Erythrocyte distribution width (RBC) [Ratio] 13.2 % Normal 11.0-15.0 [facility] Comment on above: Performed By: #### C BC #### [facility] [address] [place] [address] Dr. Irving Salgado Hematocrit (Bld) [Volume fraction] 42.1 % Normal 36.0-48.0 [facility] Comment on above: Performed By: #### C BC #### [facility] [address] [place] [address] Dr. Irving Salgado Hemoglobin (Bld) [Mass/Vol] 13.7 g/dL Normal 12.0-16.0 [facility] Comment on above: Performed By: #### C BC #### [facility] [address] [place] [address] Dr. Irving Salgado IG # 0.03 10e3/ul Normal 0.00-0.03 [facility] Comment on above: Performed By: #### C BC #### [facility] [address] [place] [address] Dr. Irving Salgado IG % 0.5 % Normal 0.0-0.5 [facility] Comment on above: Performed By: #### C BC #### [facility] [address] [place] [address] Dr. Irving Salgado LYMPH # 2.0 103/ul Normal 1.2-3.8 [facility] Comment on above: Performed By: #### C BC #### [facility] [address] [place] [address] Dr. Irving Salgado Lymphocytes/100 WBC (Bld) 31.7 % Normal 20.5-60.0 [facility] Comment on above: Performed By: #### C BC #### [facility] [address] [place] [address] Dr. Irving Salgado MANUAL DIFF REQ NO Normal [facility] Comment on above: Performed By: #### C BC #### [facility] [address] [place] [address] Dr. Irving Salgado MCH (RBC) [Entitic mass] 30.2 pg Normal 26.7-34.0 [facility] Comment on above: Performed By: #### C BC #### [facility] [address] [place] [address] Dr. Irving Salgado MCHC (RBC) [Mass/Vol] 32.5 g/dL Normal 29.9-35.2 [facility] Comment on above: Performed By: #### C BC #### [facility] [address] [place] [address] Dr. Irving Salgado MCV (RBC) [Entitic vol] 92.9 fL Normal 81.0-99.0 [facility] Comment on above: Performed By: #### C BC #### [facility] [address] [place] [address] Dr. Irving Salgado MONO # 0.6 103/ul Normal 0.3-0.8 [facility] Comment on above: Performed By: #### C BC #### [facility] [address] [place] [address] Dr. Irving Salgado Monocytes/100 WBC (Bld) 9.9 % Normal 1.7-12.0 [facility] Comment on above: Performed By: #### C BC #### [facility] [address] [place] [address] Dr. Irving Salgado NEUT # 3.4 103/ul Normal 1.4-6.5 [facility] Comment on above: Performed By: #### C BC #### [facility] [address] [place] [address] Dr. Irving Salgado Neutrophils/100 WBC (Bld) 54.9 % Normal 43.0-75.0 [facility] Comment on above: Performed By: #### C BC #### [facility] [address] [place] [address] Dr. Irving Salgado Platelet mean volume (Bld) [Entitic vol] 10.0 fL Normal 9.5-13.5 [facility] Comment on above: Performed By: #### C BC #### [facility] [address] [place] [address] Dr. Irving Salgado PLT 252 103/ul Normal 150-450 [facility] Comment on above: Performed By: #### C BC #### [facility] [address] [place] [address] Dr. Irving Salgado RBC 4.53 106/ul Normal 4.20-5.40 [facility] Comment on above: Performed By: #### C BC #### [facility] [address] [place] [address] Dr. Irving Salgado WBC 6.2 103/ul Normal 4.0-11.0 [facility] Comment on above: Performed By: #### C BC #### [facility] [address] [place] [address] Dr. Irving Salgado FREE THYROXINE INDEX T7on FTI 2.31 Normal 1.30-4.50 [facility] Comment on above: Performed By: #### T SH, T7, LIPID, CMP #### [facility] [address] [place] [address] Dr. Irving Salgado T3U 30.0 % Normal 30.0-39.0 [facility] Comment on above: Performed By: #### T SH, T7, LIPID, CMP #### [facility] [address] [place] [address] Dr. Irving Salgado T4 [Mass/Vol] 7.70 ug/dL Normal 4.80-13.90 [facility] Comment on above: Performed By: #### T SH, T7, LIPID, CMP #### [facility] [address] [place] [address] Dr. Irving Salgado GLYCOHEMOGLOBIN A1Con 2021 ADA RECOMMENDATION SEE BELOW Normal [facility] Comment on above: Result Comment: ADA RECOMMENDED LIMIT 4.0 - 6.0 ADA THERAPEUTIC TARGET < 7.0 ACTION SUGGESTED > 7.0 Performed By: #### A 1C #### [facility] [address] [place] [address] Dr. Irving Salgado Glucose [Mass/Vol] 117 mg/dL Normal [facility] Comment on above: Performed By: #### A 1C #### [facility] [address] [place] [address] Dr. Irving Salgado HbA1c (Bld) [Mass fraction] 5.7 % Normal 4.5-6.2 [facility] Comment on above: Performed By: #### A 1C #### [facility] [address] [place] [address] Dr. Irving Salgado LIPID PROFILEon 01-04-2022 CHOL-HDL RATIO NORM SEE BELOW Normal [facility] Comment on above: Result Comment: 3.3 - 4.4 LOW RISK 4.4 - 7.1 AVERAGE RISK 7.1 - 11.0 MODERATE RISK >11.0 HIGH RISK Performed By: #### T SH, T7, LIPID, CMP #### [facility] [address] [place] [address] [address] Irving Salgado Cholesterol [Mass/Vol] 230 mg/dL Critically high <=200 [facility] Comment on above: Performed By: #### T SH, T7, LIPID, CMP #### [facility] [address] [place] [address] [address] Irving Salgado Cholesterol in HDL [Mass/Vol] 68 mg/dL Critically high 40-60 [facility] Comment on above: Performed By: #### T SH, T7, LIPID, CMP #### [facility] [address] [place] [address] [address] Irving Salgado Cholesterol in LDL [Mass/Vol] 143.8 mg/dL Normal [facility] Comment on above: Performed By: #### T SH, T7, LIPID, CMP #### [facility] [address] [place] [address] [address] Irving Salgado Cholesterol.total/Ch olesterol in HDL [Mass ratio] 3.4 {ratio} Normal [facility] Comment on above: Performed By: #### T SH, T7, LIPID, CMP #### [facility] [address] [place] [address] [address] Irving Salgado HDL NORMAL > or = 60 mg/dl - LOW CARDIOVASCULAR RISK <40 mg/dl - HIGH CARDIOVASCULAR RISK Normal [facility] Comment on above: Performed By: #### T SH, T7, LIPID, CMP #### [facility] [address] [place] [address] [address] Irving Salgado LDL CALC NORMAL SEE BELOW Normal [facility] Comment on above: Result Comment: <100 mg/dl OPTIMAL 100 - 129 mg/dl NEAR OR ABOVE OPTIMAL 130 - 159 mg/dl BORDERLINE HIGH 160 - 189 mg/dl HIGH >190 mg/dl VERY HIGH Performed By: #### T SH, T7, LIPID, CMP #### [facility] [address] [place] [address] [address] Irving Salgado Triglyceride [Mass/Vol] 91 mg/dL Normal <=150 [facility] Comment on above: Performed By: #### T SH, T7, LIPID, CMP #### [facility] [address] [place] [address] [address] Irving Salgado VLDL CALC 18.2 mg/dL Normal [facility] Comment on above: Performed By: #### T SH, T7, LIPID, CMP #### [facility] [address] [place] [address] [address] Irving Salgado PROF 14(COMP METB)on 022 Albumin [Mass/Vol] 3.7 g/dL Normal 3.4-5.0 [facility] Comment on above: Performed By: #### T SH, T7, LIPID, CMP #### [facility] [address] [place] [address] [address] Irving Salgado Albumin/Globulin [Mass ratio] 1.0 {ratio} Normal [facility] Comment on above: Performed By: #### T SH, T7, LIPID, CMP #### [facility] [address] [place] [address] Dr. Irving Salgado ALP [Catalytic activity/Vol] 100 U/L Normal 46-116 [facility] Comment on above: Performed By: #### T SH, T7, LIPID, CMP #### [facility] [address] [place] [address] [address] Irving Salgado ALT [Catalytic activity/Vol] 17 U/L Normal 14-59 [facility] Comment on above: Performed By: #### T SH, T7, LIPID, CMP #### [facility] [address] [place] [address] [address] Irving Salgado Anion gap [Moles/Vol] 10.1 mmol/L Normal [facility] Comment on above: Performed By: #### T SH, T7, LIPID, CMP #### [facility] [address] [place] [address] [address] Irving Salgado AST [Catalytic activity/Vol] 15 U/L Normal 15-37 [facility] Comment on above: Performed By: #### T SH, T7, LIPID, CMP #### [facility] [address] [place] [address] [address] Irving Salgado Bilirubin [Mass/Vol] 0.5 mg/dL Normal 0.2-1.0 [facility] Comment on above: Performed By: #### T SH, T7, LIPID, CMP #### [facility] [address] [place] [address] [address] Irving Salgado Calcium [Mass/Vol] 9.3 mg/dL Normal 8.5-10.1 [facility] Comment on above: Performed By: #### T SH, T7, LIPID, CMP #### [facility] [address] [place] [address] Dr. Irving Salgado Chloride [Moles/Vol] 102 mmol/L Normal 98-107 [facility] Comment on above: Performed By: #### T SH, T7, LIPID, CMP #### [facility] [address] [place] [address] Dr. Irving Salgado CO2 [Moles/Vol] 30.1 mmol/L Normal 21.0-32.0 [facility] Comment on above: Performed By: #### T SH, T7, LIPID, CMP #### [facility] [address] [place] [address] Dr. Irving Salgado Creatinine [Mass/Vol] 0.93 mg/dL Normal 0.55-1.02 [facility] Comment on above: Performed By: #### T SH, T7, LIPID, CMP #### [facility] [address] [place] [address] Dr. Irving Salgado EGFR-AF TRINIDADIAN >60 Normal >=60 [facility] Comment on above: Performed By: #### T SH, T7, LIPID, CMP #### [facility] [address] [place] [address] Dr. Irving Salgado EGFR-NON AF TRINIDADIAN >60 Normal >=60 [facility] Comment on above: Performed By: #### T SH, T7, LIPID, CMP #### [facility] [address] [place] [address] Dr. Irving Salgado Globulin (S) [Mass/Vol] 3.7 g/dL Normal [facility] Comment on above: Performed By: #### T SH, T7, LIPID, CMP #### [facility] [address] [place] [address] Dr. Irving Salgado Glucose [Mass/Vol] 92 mg/dL Normal 74-106 [facility] Comment on above: Performed By: #### T SH, T7, LIPID, CMP #### [facility] [address] [address] [address] Irving Salgado Potassium [Moles/Vol] 4.2 mmol/L Normal 3.5-5.1 [facility] Comment on above: Performed By: #### T SH, T7, LIPID, CMP #### [facility] [address] [place] [address] [address] Irving Salgado Protein [Mass/Vol] 7.4 g/dL Normal 6.4-8.2 [facility] Comment on above: Performed By: #### T SH, T7, LIPID, CMP #### [facility] [address] [place] [address] Dr. Irving Salgado Sodium [Moles/Vol] 138 mmol/L Normal 136-145 [facility] Comment on above: Performed By: #### T SH, T7, LIPID, CMP #### [facility] [address] [place] [address] Dr. Irving Salgado Urea nitrogen [Mass/Vol] 18.0 mg/dL Normal 7.0-18.0 [facility] Comment on above: Performed By: #### T SH, T7, LIPID, CMP #### [facility] [address] [place] [address] Dr. Irving Salgado Urea nitrogen/Creatinine [Mass ratio] 19.4 mg/mg Normal [facility] Comment on above: Performed By: #### T SH, T7, LIPID, CMP #### [facility] [address] [place] [address] Dr. Irving Salgado TSHon 01-04-2022 TSH 2.920 uIU/mL Normal 0.358-3.740 [facility] Comment on above: Performed By: #### T SH, T7, LIPID, CMP #### [facility] [address] [place] [address] Dr. Irving Salgado XR Foot Complete Right*on XR Foot Complete Right* CLINICAL HISTORY: Pain COMPARISON: None available. FINDINGS: AP, lateral and oblique views of the left foot demonstrate no evidence of a fracture, dislocation, bone or joint abnormality. There is a small plantar calcaneal spur. IMPRESSION: NEGATIVE LEFT FOOT. Report reported and signed by CARINA VIZCARRA on 10/05/2021 1331 Normal [facility] Maintenance Service Technician Coding Summary.on 05-23-2021 Coding Summary. CD:[id number] Gh0bWw+PGhlYWQ+PE1FV GOcF84woBMphB8BI5fBE U8MUJXBDARTPU5WQB4qs PK1ZPnpZ1TxnpVe UubkrIIpOV23PMb6BLM1 rJkfHEjwfW3qxSPfP9j1 IrNqGF56zO62OShdCEUf LkX0JeAlttjewXWs K2qoDfVymPUzKuh+PHRh YmxlIHdpZHRoPScxMDAl JuDdcSskOM5sUr7kQDFj LWNvbGxhcHNlOiBj s6hhJIHaIGqvHJ7woTza N2HbnVC3LIVea0j8An81 dHI+HKDxRER0iTcnZIks h113YcMbs8oiTWY8 uQCnARybAQG9N65is0F9 LNOoPDXaGKL8mPI0dI9k rHcqncklF2AttUXvRfR0 REU8cJBrwL7kjLal abczoY8dNub+A92CKK3F YGEJHH3FIrd5V2WzUloc dHI+DV31WZXbHX55kKTv sIQsp9mfmVh9ReNu GISrFPZ7oHhoJErfc3Iv TUTuU16tjGIal5L7EKMf yPnsuSByZqFxlYX1aP8w RDidlevfo1fcwzzv Cbhag2ffxz82lT15M52u MCqmLUFeFLP3WJNiLBEy iTvubl1ajU8fXu7+IDxj l3jxz2izcMa1AwSv ZFEcorNrwYbsLSD3z6Tz Ec62R5PfoBpet3WuQga6 gp35wMEzh1X7xHS6ZXau EQTkjP9eSXpeAeM6 SWDvOlWhkW08uAUvJBxp Ms7doXihjKdwHY0lZNBq nelaSHZksU7bXBTgqJNz sGceUA2qSJAapmbw s395NoIiVFB3MYCjtTBt Z1YfrL0pPcBhKQDaJHDc W9HouFPxQRzlB662SMrp AtX8KQTyjwGiF0Xq HDVcbSayXtQ8h3S1Ty4E u3YnvhfuDLZ7JBnwMGA3 LrAdZvDxPgH4T5SsNzb9 EAGbkMkfBK2sW7Jh BUCljqygjdsvxMG5EBGy JAXntN33hAAsULfxWs6d c9T5o398OSQoFWJzfD34 Iz9bhXqnDDGwcRED uC7xmsfrj5dtvcgmFzNr ULImDUp3XUq2KZExjQyv OpGwTSG8SsT8FHM0dAEt wW9rsAgejbslaI1l Oyc+K83odI8gWUO0VFK3 vfmpTVByssRrZM76IG25 Q0AzUmdejUYhdOV+PGRp ffHflFueVX3zZwZx p2plc4VtTDraB4HbHTRg ZKdnUzw8BAYjLXO6uHX0 oA3jIGEgPYxud2V6bMR0 X1HdqyHdcz5gq4hv JZGmLZnlX27ytSTam2Z4 RIHlvHJ1WQInzCazUcPv hC85Kxf+ZSWisKwcy8Ro Awteg2pkt0wusJo4 IjMwJSIgdmFsaWduPSJ0 f9MjMx98H59bYVtiMMOr HDXtOCHyLVHobIojnm3k kD2pDx2+PGNvbCB3 dTJ2fO8pCGIzPqO6PTkw T556IpTrrHCaNgdnk2hl e6yzbZz9AfHnCTKpkwFa uJyiOOG6o1ScIq75 Y10zQLrrKJWyKYLaGTTm OMXjxRagmi7itU3zUl7+ MU6gn3tqji23fH96kVR+ ESPtWHS7vLesOQra NMYeeY3nHKwrEfG2VOOj OhRteN36hSKhMTsaQt4s cNwykVpuFS2gQRXzgcnp v536SiZtk8vzOMTi jDKpAThbEFS1B25lo8N7 SCRoDYTfRNS6wGZ6qR5b bGlnbjogbGVmdDsgdmVy qPgiWLkwQEfvC519 IHRvcDsnPlBhdGllbnQg CuFhKUy9D1LoQud4VPNz gVtzJM2nvSMpATzfYl7v wLjaeGgxHB4qSRTn nywou125TmEnk6tcLZQj cMXaCXdfFMZ7I48xu6Y9 EDEiEKQxEZZ9zFQ5dW3s bGlnbjogbGVmdDsg tcMjnOfsBSihOHcxP077 IHRvcDsnPkJpcnRoIERh eWV5WC06JR36eKPso2T6 bFG6H4JsIMYpyvar eykrlXQ1GYEfKHMzdT67 Mr2nhSwbZz8hJUEiACQ1 PSGmgOTwF5EmtZ2rHpVq KGEkCDHgA3WjkZMk EOpbI690LCvsWhB1DRQm vnDlA3EeAFJyhQhgDeJ7 n5U5Jp5QN2E2WG19SU56 wAVuv2T7pOV6Q8Js HISxalbtsioyeTV9AMJi IMGxsA29Iy3eqIakIo2x ZCMeULD9YAZppQNiF6Ce rI3tLsGpPGSnQGDf X4XluHDyISovH474RPmr IoC7ZYJcyuMwT6KvXKIc bLpeGnJ2f7X1Au3FWQv9 XJ47SJ06pAXfd6K4 nAX6J7LyUXOdlhzagruh oRA6BGZrNKHuyY91Lu6j dThgJt9kZZVdRSH2HUZz cJMcD0JscL1lKkWo MCRdTDErE8TynZOrQNzk Y348CXagDaE5HBTnigWu W5XbECValKwcGdR2n2E6 Db2ZYRMzSK08BMC5 nXE5XR14GQ92V9IzDoyv dGFibGU+PHRhYmxlIHdp ZHRoPScxMDAlJyBzdHls DN7lTx0bYATfUVOb nPinnFUvWrKpk0fzOQSv KTfySQ5orHkrS5GfkBI4 WHZhr7c9Pr76K88rS5Ik dXA+DBNasPR2oGM3 bS0jEiZtVlM2HEnzL269 AtYcsVUeOanij0uca6ga cLn0MuB8YMKnpgIhzBth KQZ1m8PuCu96V21v IHdpZHRoPSIxNSUiIHZh vXmjgi2yoZ6wCn4+PGNv rOZ5rMB4wT7bPxKxVoW8 IYrrA575KcNppRIj Tirdz0uic1epfTx5HxJo GCWxouAhpGhwPIW2v7Pn Gy36Z0JolStzc5BlFkx7 wg87qDZxm3N8vNT4 Z7FlJCSqswzlmMSkgPyt VN5jZPUqsulyAUDiaU7t EINiH5x9OkQoCuC8TNrj L3XwnmZ9XBNtrUZj UUhnQLM2I54mk5F1MMIr FTOyAQR4eLZ8qK6lqYff bjogbGVmdDsgdmVydGlj MXmbNGnfE556XLDn dNtrZVJhxS2kTNWvrIGu qScpOK4jAQAteheaPecT Z64CAjgxIJAZSJlEEuTE DI29VJ22dOGms6L2 vLP0K8CiSLAsepbwkzra jBA1MGXcBPAgeN49wEVx JKuuSs7ht5O2l849CAQx HIRcdH72Ss1ycOjq VONziSUXfW8uwuikg5oj zwzmJiToZNDhHCr5AOc3 WOEtwOukVrXpPMN5YkZ9 CCJ0gEOtbV1lhWpp rotzjQ6qFzx+MDIvMTYv ADc0OBynvCH+PHRkIHN0 gVgsANmuRXJbtN4tAVRu Y2r2AyIxUuQ6KYvd Z7GgEATnzvueXo80vG6n ExRoFqA1ZArsS8ZiecC7 WIAcqVSnXScbZVM5E52m h2I2FFAmVZRjZML0 rVK1yA0ptFgyoxldaSEh dDsgdmVydGljYWwtYWxp O857KEIhnPywMhZ1PVpy UWOuDH87FR09lZAg t5H1cQR7G0FkLCGonupa oaeoaFI0SJWaTFQmpP23 hJBwAXnwOj4co9D9o906 DFJjEVVxyL07Oi1b nVyjVLCdnBUSaE4nnerd m9pbnvufNnErENEsWTb7 CFz4FFShtGmxUvHhVYX8 XaC0GAI5vYEabB9j qPlpubptbC9lVbz+RmVt DKpdBL90HZ00iOAvz0Q4 gCR1V5YuQJSopxznjjub iJO6TMNgHIGkyG17 qFRtXQhtXj6rg5Q9r389 STNuONBfoX56At9juLdx YVIsrIAVeH0roeuxw0pz cjogIzAwMDAwMDt0 UMf6HPHasWslOwKhJWZ7 NaV7XJL4qJPajS1txSua mmwdlN5vLea+TGFiIERy n6Oxh7EsDQ93JJ14 T5DvXnbraDSqzIE+PHRh YmxlIHdpZHRoPScxMDAl VgNjsRmyPT2oIa9lYNUk LWNvbGxhcHNlOiBj g4mbQHDmINsnRF7leGlx I7EbxTM9JBMfd9x0Pq21 T43tN6FmnYF+PGNvbCB3 aXB8kY5nOkUrHzL1 MHolC639KmAwbDShNnts x3wfn6wihYu9DoAvNVLw sxWleNtkCQD5s0WwVs99 T16pXVoaFOSlQAIk RDKgBDVfxMklvz6dmA2o Ii8+OHNnyOG2dKD4jG0p LwBiDiO1UGbcY176WaSq wHUqGjxcE23gM5Oz dXA+ZUDlSxy6GMNwuHqo EV3gjCIjHByzYf6jUNM1 GcXlDqNkNRstT8ZlRXRw xaiqhvyucYX9PRQm JQYtbE60Ho2uwXymPm9k GOQeNPQ3WFSwcUPuH9Gq kQ1tKxDpVBZcOFNyM6Ng eQNnCZeoW308BExv CsU5XZWkduFuR1UqDZHc lEldSoO9c9P7Qp6ZrPyg mVCdVL2vSeBkNWo4Y9Ju Gji4ZTKudSofSI6k cAHvPIclUj7baWomiFoe WY3qQLLndaqlv659IdIc f9bjWXRxlZCtWAosVFA9 T44mn0D9MVAkPLXw NEG3pFM1tR1txRuvgcrp bGVmdDsgdmVydGljYWwt LXanJ729JFTguAnlVcXW Fdt6K8RlMut6YBHw zAlaRN0xpNDuWHusSn7n fVcozHupZG7fWVXheghz u817TqFuw6msVBXtiYZo KSxeDUT5K29ri7T1 PMNlZFEeKHY9cJZ2cI8q bGlnbjogbGVmdDsgdmVy sLcuBNxlNTvpC681OGMr jPwhIw7DCou6L7Dv Occ7TOBwwSbyZB9ylNJc BZovEc1scSaccOmrOF1u YFMdjogwt202VgJrw2ng IDEwcHQgVGltZXM7 M94lu1C8JTOqSBWgVQJ2 rKJ2gY3qsDeglqvbsYYv dDsgdmVydGljYWwtYWxp F535VBTfmSnuNyXh eWVyOjwvdGQ+RE62ib61 Z6XhOylnJbv3GHToSFP7 kBM8qF9xMMVkXCcwp0F7 wHD1B3RxxwQmge4w b2xs (more content not included)... Normal [facility] PAP [id number] 05-17-2021 Cytology report Cyto stain Doc (Cvx/Vag) Note Invalid Interpretation Code [facility] Comment on above: Result Comment: TEST S RESULT FLAG UNITS REF RANGE LAB Clinician Provided Cytology Information Source.............[employer] No. of containers..01 ThinPrep Vial DIAGNOSIS: 01 NEGATIVE FOR INTRAEPITHELIAL LESION OR MALIGNANCY. Specimen adequacy: 01 Satisfactory for evaluation. Endocervical and/or squamous metaplastic cells (endocervical component) are present. Performed by: Tran Hernandez, Tying Machine Operator [employer]umber . 01 Note: Note 01 The Pap [...] <-Panic Low,>-Panic High,A-Abnormal,AA-Critical Abnormal Performed at: [address] [address] Geri Mora MD, Performed By: #### 1 [id number] #### [facility] [address] [place] [address] HPV 16+18+31+33+35+39+45 +51+52+56+58+59+66+6 8 DNA Probe+sig amp Ql (Cvx) Negative Invalid Interpretation Code Negative [facility] Comment on above: Result Comment: This nucleic acid amplification test detects fourteen high-risk HPV types (16,18,31,33,35,39,45,51,52,56,58,59,66,68) without differentiation. Performed at: [address] [id number] MD Morgan Nevarez Performed at: =G [address] [id number] MD Morgan Nevarez Performed By: #### 1 [id number] #### [facility] [address] [place] [address] PAP [id number] 05-11-2021 Collection Technique BRUSH-SPATULA Normal F [facility] Comment on above: Performed By: #### 1 [id number] #### [facility] [address] [place] [address] Gynecological Body Site ENDOCERVIX Normal [facility] Comment on above: Performed By: #### 1 [id number] #### [facility] [address] [place] [address] Physician Orderon 05-11-2021 Physician Order [id number]:127 Normal [facility] Vital Signs Date Time Vital Sign Value Performing Clinician Srikanth gant 02-14-2022 13:06-0500 Heart rate 93 /min MD Vivienne Dia Work Phone: [facility] 02-14-2022 13:06-0500 SaO2% (BldA) [Mass fraction] 95 % MD Vivienne Dia Work Phone: [facility] 02-14-2022 10:50-0500 Body temperature 98.3 [degF] MD Vivienne Dia Work Phone: [facility] 02-14-2022 10:50-0500 Diastolic blood pressure 84 mm[Hg] MD Vivienne Dia Work Phone: [facility] 02-14-2022 10:50-0500 Respiratory rate 20 /min MD Vivienne Dia Work Phone: [facility] 02-14-2022 10:50-0500 Systolic blood pressure 131 mm[Hg] MD Vivienne Dia Work Phone: [facility] 02-14-2022 10:49-0500 Body height 167.64 cm MD Vivienne Dia Work Phone: [facility] 02-14-2022 10:49-0500 Body weight 94.75 kg MD Vivienne Dia Work Phone: [facility] Encounters Encounter Date Encounter Type Care Provider Facility Start: 02-14-2022 End: 02-14-2022 Emergency department patient visit Sim Reed Facility:[facility] Start: 02-14-2022 End: 02-14-2022 Emergency department patient visit MD Vivienne Dia Work Phone: [facility] Work Phone: Start: 01-12-2022 End: 01-13-[address] VIVIENNE DIA Facility: Start: 01-09-2022 Encounter for genera l adult medical examination without abnormal findings DR VIVIENNE DIA [facility] Start: 01-04-2022 End: 01-05-[address] VIVIENNE DIA Facility:[facility] Start: 01-04-2022 End: 01-05-2022 Encounter for general adult medical examination without abnormal findings DR VIVIENNE DIA Facility:[facility] Start: 05-11-2021 End: 05-11-2021 Lab Drop off Ming J Sloan [facility] Procedures Date Procedure Procedure Detail Performing Clinician Start: 02-14-2022 SARS-CoV-2, Influenz a & RSV (PCR) MD Vivienne Dia Work Phone: Start: 02-14-2022 Plain chest X-ray MD Saeed Work Phone: Plan of Treatment Date Care Activity Detail Author Patient Education Acute Bronchitis, Adult (DC) [facility] Work Phone: Patient referral [facility] Work Phone: Payers Date Payer Category Payer Self-pay 1965 Unknown [id number] 1965 Unknown [id number] 1961 Unknown [id number] Unknown [id number] Social History Date Type Detail Facility Tobacco smoking status [facility] Sex Assigned At Female [facility] Start: 02-14-2022 Tobacco smoking stat us NHIS Never smoked tobacco (finding) [facility] Start: 1965 Sex Assigned At Female F [facility] Evaluation + Plan note 05-11-2021 Note Date & Type Note Facility 05-11-2021 Evaluation + Plan note Diagnostic Tests PendingPAP w/HPV 05/11/21 [facility] Evaluation note Note Date & Type Note Facility Evaluation note No assessment information availa ble [facility] Work Phone: Hospital course Narrative Note Date & Type Note Facility Hospital course Narrative No data available for this section [facility] Hospital Discharge instructions Note Date & Type Note Facility Hospital Discharge instructions No data available for this section [facility] Summary Purpose Family History No Family History [...] section and content) DATE CREATED AUTHOR 05/24/2021 [facility] DATE CREATED AUTHOR AUTHOR'S ORGANIZ ATION 10/08/2021 [facility] dical Specialist DATE CREATED AUTHOR AUTHOR'S ORGANIZ ATION 01/18/2022 [facility] DATE CREATED AUTHOR AUTHOR'S ORGANIZ ATION 02/27/2022 [facility] Care Teams (unrecognized sec tion and content) [...] BE BASED ON THE PRIMARY CLINICAL RECORDS. [facility] [employer] provides no warranty or guarantee of the accuracy or completeness of information in this document.
== END 2023-04-04 07:32 | disposition home or self-care (01) ==
LOC: MRI 07:31
PROVIDERS: PCP Family Medicine; Visit Provider Podiatrist Foot & Ankle Surgery
DX: M19.071 Primary osteoarthritis, right ankle and foot (principal)
CPT/HCPCS: 73718

== ENCOUNTER 2024-08-29 08:41 | Outpatient (RCR) | payer BC, SELFPAY | END 2024-11-19 10:06 | disposition home or self-care (01) | LOC: PT 08:41 | PROVIDERS: PCP Family Medicine; Visit Provider Family Medicine | DX: M25.551 Pain in right hip (principal) | CPT/HCPCS: 20561; 97014; 97035; 97110; 97140; 97161 ==

== ENCOUNTER 2024-09-05 09:31 | Outpatient (OUT) | payer BC, SELFPAY ==
[2024-09-05 10:21] LABS: Hematocrit 41.7 % (36.0-48.0); Hemoglobin 13.4 g/dL (12.0-16.0); Immature Granulocytes Abs Auto 0.02 10^3/uL (0.00-0.03); Immature Granulocytes Pct Auto 0.3 % (0.0-0.5); Lymphocytes Absolute Auto 2.0 10^3/uL (1.2-3.8); Mean Corpuscular HGB Conc 32.1 g/dL (29.9-35.2); Mean Corpuscular Hemoglobin 29.9 pg (26.7-34.0); Mean Corpuscular Volume 93.1 fL (81.0-99.0); Platelet Count 245 10^3/uL (150-450); Red Blood Count 4.48 10^6/uL (4.20-5.40); White Blood Count 7.7 10^3/uL (4.0-11.0)
[2024-09-05 11:10] LABS: Iron 79.0 ug/dL (50.0-170.0)
[2024-09-05 12:08] LABS: Alanine Aminotransferase 28 U/L (14-59); Albumin Globulin Ratio 0.6; Albumin Level 2.9 g/dL (3.4-5.0); Alkaline Phosphatase 105 U/L (46-116); Anion Gap 6.1; Aspartate Amino Transferase 22 U/L (15-37); Blood Urea Nitrogen 18.0 mg/dL (7.0-18.0); Calcium 9.6 mg/dL (8.5-10.1); Carbon Dioxide 33.0 mmol/L (21.0-32.0); Chloride 103 mmol/L (98-107); Cholesterol 318 mg/dL (<=200); Estimated GFR (African America >60 (>=60 mL/min/1.73m^2); Estimated GFR (Non-African Ame 52 (>=60 mL/min/1.73m^2); Free T3 2.68 pg/mL (2.18-3.98); Globulin 4.6 g/dL; Glucose 101 mg/dL (74-106); HDL Cholesterol 76 mg/dL (40-60); Potassium 4.1 mmol/L (3.5-5.1); Sodium 138 mmol/L (136-145); Thyroid Stimulating Hormone 2.735 uIU/mL (0.358-3.740); Total Protein 7.5 g/dL (6.4-8.2)
[2024-09-05 12:19] LABS: VLDL CHOLESTEROL 25.4 mg/dL
[2024-09-05 12:49] LABS: Triglycerides 101 mg/dL (<=150)
--- OUTSIDE RECORDS SUMMARY | 2024-09-09 09:19 | XMS_ITS | Encounter Summary ---
Author Organization [facility] Address [address] [place] [address] Care Team Providers Care Roll Mechanic Name Role Phone Unavailable Primary Care Provider Unavailabl e Encounter Details Date Type Department Care Team (Late st Contact Info) Description 07/18/2022 Abstract [facility] [address] [facility] [address] [place] [phone] Ming Lisa MD [address] [facility] [address] [place] [address] Social History Tobacco Use Types Packs/Day Years Used Date Smoking Tobacco: Never Smokeless Tobacco: Never Alcohol Use Standard Drinks/Week Comments Never 0 (1 standard drink = 0.6 oz pure alcohol) caffeine intake: 2-3 cups per day; tea Comments Unknown Sex and Gender Information Value Date Recorded Sex Assigned at Not on file Legal Sex Female 6:34 PM EDT Gender Identity Female 09/07/2022 8:51 AM EDT Sexual Orientation Not on file documented as of this encounter Plan of Treatment Not on file documented as of this encounter Visit Diagnoses Not on filedocumented in this encounter
--- OUTSIDE RECORDS SUMMARY | 2024-09-09 09:19 | XMS_ITS | Encounter Summary ---
Author Organization [facility] Address [address] [place] [address] Care Team Providers Care Strap Stitcher Name Role Phone Unavailable Primary Care Provider Unavailabl e Encounter Details Date Type Department Care Team (Late st Contact Info) Description 02/02/2023 Abstract [facility] [address] [place] [phone] Yomaira Shoemaker, SENIOR MECHANICAL DESIGNER [address] [place] [address] [place] [phone] Social History Tobacco Use Types Packs/Day Years [...]
--- OUTSIDE RECORDS SUMMARY | 2024-09-09 09:19 | XMS_ITS | Clinical Summary ---
Author Organization [facility] Address [address] [place] [address] Care Team Providers Care Programmer Business Name Role Phone Unavailable Primary Care Provider Unavailabl e Medications albuterol HFA 90 mcg/act inhaler 02/14/2022 Act sabas meloxicam (Mobic) 7.5 MG tablet 1 (one) time each day at the same time Active Active Problems Problem Noted Date Diagnosed Date Acute stress disorder 02/02/2023 Atrophic vaginitis 02/02/2023 Pain in female genitalia on intercourse 02/03/20 23 Pain in right foot 02/02/2023 Family History Medical History Relation Name Comments Lung cancer Father Lung cancer Mother Cancer Other Heart disease Other Relation Name Status Comments Father Mother Other Family history Social History Tobacco Use Types Packs/Day Years [...] AM EDT Sexual Orientation Not on file Last Filed Vital Signs Vital Sign Reading Time Taken Comments Blood Pressure 158/95 11/23/2021 12:00 PM EDT Pulse - - Temperature - - Respiratory Rate - - Oxygen Saturation - - Inhaled Oxygen Concentration - - Weight 96.6 kg (213 lb) 10/05/2021 12:00 PM EDT Height 170.2 cm (5' 7 ) 11/23/2021 12:00 PM EDT Body Mass Index 33.36 10/05/2021 12:00 PM EDT Plan of Treatment Not on file
--- OUTSIDE RECORDS SUMMARY | 2024-09-09 09:38 | XMS_ITS | CCD ---
Author Organization [facility] Care Team Providers Care Marketing Secretary Name Role Phone NONE, XXXX Primary Care Physician Unavailab lina DIA, DR PALAFOX Admitting Unavailable SOREN, DR PALAFOX Primary Care Unavailable SOREN, DR PALAFOX Consulting Unavailable SOREN, DR PALAFOX Attending Unavailable SOREN, DR PALAFOX Primary Care Unavailable SOREN, DR PALAFOX Consulting Unavailable SOREN, DR PALAFOX Attending Unavailable SOREN, DR PALAFOX Admitting Unavailable WEST, DR FORBES Consulting Unavailable MD Vivienne Dia Primary Care Provider [phone] PARAS Reed Emergency Provider Sim Reed Attending Unavailable Sim Reed Admitting Unavailable Vivienne Dia Primary Care Unavailable Medications Current Medications Medication Drug Class(es) Dates Sig (Normalized) Sig (Original) [id number] 200 actuat albuterol 0.09 mg/actuat metered dose [...] SARS-CoV-2 (COVID-19) Ab IA Ql Negative Negative [facility] Comment on above: This is a duplicate Cepheid Xpert Xpress CoV-2/Flu/RSV Plus RNA by RT-PCR result to be used for statistical tracking purpose only. SARS-CoV-2 (COVID-19) RNA DEACON+probe Ql (Unsp spec) [facility] COVID-19 / Flu A/B / RSV [...] or Cepheid Disclaimer revoked sooner. PERFORMED BY: [place] [address] PATHOLOGIST MITTEN STITCHER BIANKA POWERS M.D. Normal [facility] Comment on above: Performed By: #### C EPHEID NEG, COVID19 FLU RSV #### [address] Cepheid COVID PCR Negativeon 02-14-2022 SARS-CoV-2 (COVID-19) RNA DEACON+probe Ql (Unsp spec) Negative Normal Negative [facility] Comment on above: Result Comment: This is a duplicate Cepheid Xpert Xpress CoV-2/Flu/RSV Plus RNA by RT-PCR result to be used for statistical tracking purpose only. PERFORMED BY: [place] [address] PATHOLOGIST MITTEN STITCHER BIANKA POWERS M.D. Performed By: #### C EPHEID NEG, COVID19 FLU RSV #### [address] XR chest 2V*on 02-14-2022 XR chest 2V* [facility] [place] [address] XRay Report Signed Patient: Bart Hernandez MR#: [id number] : 1965 Acct:[id number] Age/Sex: 56 / F ADM Date: 02/14/22 [...] PNEUMONIA. Impression dictated by: Oswaldo Woodruff Jr., D.O.02/14/2022 11:53 AM Dictation Location: [place] [address] Transcribed By: [facility] 02/14/22 1153 Dictated By: Oswaldo Woodruff Jr, DO 02/14/22 1152 Signed By: 02/14/22 1153 [facility] MG MAMM SCREEN 3D JUSTINE CADon 01-12-2022 MG MAMM SCREEN 3D JUSTINE CAD Patient: BART HERNANDEZ Exam Date: 01/12/2022 : 1965 Gender:F Ordering : DR VIVIENNE DIA . Admission #: [id number] Family : Order #: [id number] CLICK HERE TO VIEW EXAM RADIOLOGY REPORT [...] with lung cancer at age 60. LOCATION: [facility] BREAST COMPOSITION: Heterogeneously dense,which may obscure small [...] Avni Gonzalez MD on 01/12/2022 at 14:36 [facility] INSULINon 01-06-2022 Insulin 11.4 uIU/mL Normal 2.6-24.9 [facility] Comment on above: Performed By: #### I NSULIN #### [facility] [address] [place] [address] Dr. Irving Salgado CBC AUTO DIFFon 01-04-2022 BASO # 0.1 103/ul Normal 0.0-0.1 [facility] Comment on above: Performed By: #### C BC #### [facility] [address] [place] [address] Dr. Irving Salgado Basophils/100 WBC (Bld) 0.8 % Normal 0.2-2.0 [facility] Comment on above: Performed By: #### C BC #### [facility] [address] [place] [address] Dr. Irving Salgado EO # 0.1 103/ul Normal 0.0-0.7 [facility] Comment on above: Performed By: #### C BC #### [facility] [address] [place] [address] Dr. Irving Salgado Eosinophils/100 WBC (Bld) 2.2 % Normal 0.9-7.0 [facility] Comment on above: Performed By: #### C BC #### [facility] [address] [place] [address] Dr. Irving Salgado Erythrocyte distribution width (RBC) [Ratio] 13.2 % Normal 11.0-15.0 [facility] Comment on above: Performed By: #### C BC #### [facility] [address] [place] [address] Dr. Irving Salgado Hematocrit (Bld) [Volume fraction] 42.1 % Normal 36.0-48.0 [facility] Comment on above: Performed By: #### C BC #### [facility] [address] [place] [address] Dr. Irving Salgado Hemoglobin (Bld) [Mass/Vol] 13.7 g/dL Normal 12.0-16.0 [facility] Comment on above: Performed By: #### C BC #### [facility] [address] [place] [address] Dr. Irving Salgado IG # 0.03 10e3/ul Normal 0.00-0.03 [facility] Comment on above: Performed By: #### C BC #### [facility] [address] [place] [address] Dr. Irving Salgado IG % 0.5 % Normal 0.0-0.5 [facility] Comment on above: Performed By: #### C BC #### [facility] [address] [place] [address] Dr. Irving Salgado LYMPH # 2.0 103/ul Normal 1.2-3.8 [facility] Comment on above: Performed By: #### C BC #### [facility] [address] [place] [address] Dr. Irving Salgado Lymphocytes/100 WBC (Bld) 31.7 % Normal 20.5-60.0 [facility] Comment on above: Performed By: #### C BC #### [facility] [address] [place] [address] Dr. Irving Salgado MANUAL DIFF REQ NO Normal [facility] Comment on above: Performed By: #### C BC #### [facility] [address] [place] [address] Dr. Irving Salgado MCH (RBC) [Entitic mass] 30.2 pg Normal 26.7-34.0 [facility] Comment on above: Performed By: #### C BC #### [facility] [address] [place] [address] Dr. Irving Salgado MCHC (RBC) [Mass/Vol] 32.5 g/dL Normal 29.9-35.2 [facility] Comment on above: Performed By: #### C BC #### [facility] [address] [place] [address] Dr. Irving Salgado MCV (RBC) [Entitic vol] 92.9 fL Normal 81.0-99.0 [facility] Comment on above: Performed By: #### C BC #### [facility] [address] [place] [address] Dr. Irving Salgado MONO # 0.6 103/ul Normal 0.3-0.8 [facility] Comment on above: Performed By: #### C BC #### [facility] [address] [place] [address] Dr. Irving Salgado Monocytes/100 WBC (Bld) 9.9 % Normal 1.7-12.0 [facility] Comment on above: Performed By: #### C BC #### [facility] [address] [place] [address] Dr. Irving Salgado NEUT # 3.4 103/ul Normal 1.4-6.5 [facility] Comment on above: Performed By: #### C BC #### [facility] [address] [place] [address] Dr. Irving Salgado Neutrophils/100 WBC (Bld) 54.9 % Normal 43.0-75.0 [facility] Comment on above: Performed By: #### C BC #### [facility] [address] [place] [address] Dr. Irving Salgado Platelet mean volume (Bld) [Entitic vol] 10.0 fL Normal 9.5-13.5 [facility] Comment on above: Performed By: #### C BC #### [facility] [address] [place] [address] Dr. Irving Salgado PLT 252 103/ul Normal 150-450 [facility] Comment on above: Performed By: #### C BC #### [facility] [address] [place] [address] Dr. Irving Salgado RBC 4.53 106/ul Normal 4.20-5.40 [facility] Comment on above: Performed By: #### C BC #### [facility] [address] [place] [address] Dr. Irving Salgado WBC 6.2 103/ul Normal 4.0-11.0 [facility] Comment on above: Performed By: #### C BC #### [facility] [address] [place] [address] Dr. Irving Salgado FREE THYROXINE INDEX T7on FTI 2.31 Normal 1.30-4.50 [facility] Comment on above: Performed By: #### T SH, T7, LIPID, CMP #### [facility] [address] [place] [address] Dr. Irving Salgado T3U 30.0 % Normal 30.0-39.0 [facility] Comment on above: Performed By: #### T SH, T7, LIPID, CMP #### [facility] [address] [place] [address] Dr. Irving Salgado T4 [Mass/Vol] 7.70 ug/dL Normal 4.80-13.90 [place] Comment on above: Performed By: #### T SH, T7, LIPID, CMP #### [facility] [address] [place] [address] Dr. Irving Salgado GLYCOHEMOGLOBIN A1Con 2021 ADA RECOMMENDATION SEE BELOW Normal [facility] Comment on above: Result Comment: ADA RECOMMENDED LIMIT 4.0 - 6.0 ADA THERAPEUTIC TARGET < 7.0 ACTION SUGGESTED > 7.0 Performed By: #### A 1C #### [facility] [address] [place] [address] Dr. Irving Salgado Glucose [Mass/Vol] 117 mg/dL Normal [facility] Comment on above: Performed By: #### A 1C #### [facility] [address] [place] [address] Dr. Irving Salgado HbA1c (Bld) [Mass fraction] 5.7 % Normal 4.5-6.2 [facility] Comment on above: Performed By: #### A 1C #### [facility] [address] [place] [address] Dr. Irving Salgado LIPID PROFILEon 01-04-2022 CHOL-HDL RATIO NORM SEE BELOW Normal [facility] Comment on above: Result Comment: 3.3 - 4.4 LOW RISK 4.4 - 7.1 AVERAGE RISK 7.1 - 11.0 MODERATE RISK >11.0 HIGH RISK Performed By: #### T SH, T7, LIPID, CMP #### [facility] [address] [place] [address] Dr. Irving Salgado Cholesterol [Mass/Vol] 230 mg/dL Critically high <=200 [facility] Comment on above: Performed By: #### T SH, T7, LIPID, CMP #### [facility] [address] [place] [address] [address] Irving Salgado Cholesterol in HDL [Mass/Vol] 68 mg/dL Critically high 40-60 [facility] Comment on above: Performed By: #### T SH, T7, LIPID, CMP #### [facility] [address] [place] [address] [address] Irving Salgado Cholesterol in LDL [Mass/Vol] 143.8 mg/dL Normal [facility] Comment on above: Performed By: #### T SH, T7, LIPID, CMP #### [facility] [address] [place] [address] Dr. Irving Salgado Cholesterol.total/Ch olesterol in HDL [Mass ratio] 3.4 {ratio} Normal [facility] Comment on above: Performed By: #### T SH, T7, LIPID, CMP #### [facility] [address] [place] [address] Dr. Irving Salgado HDL NORMAL > or = 60 mg/dl - LOW CARDIOVASCULAR RISK <40 mg/dl - HIGH CARDIOVASCULAR RISK Normal [facility] Comment on above: Performed By: #### T SH, T7, LIPID, CMP #### [facility] [address] [place] [address] Dr. Irving Salgado LDL CALC NORMAL SEE BELOW Normal [facility] Comment on above: Result Comment: <100 mg/dl OPTIMAL 100 - 129 mg/dl NEAR OR ABOVE OPTIMAL 130 - 159 mg/dl BORDERLINE HIGH 160 - 189 mg/dl HIGH >190 mg/dl VERY HIGH Performed By: #### T SH, T7, LIPID, CMP #### [facility] [address] [place] [address] Dr. Irving Salgado Triglyceride [Mass/Vol] 91 mg/dL Normal <=150 [facility] Comment on above: Performed By: #### T SH, T7, LIPID, CMP #### [facility] [address] [place] [address] Dr. Irving Salgado VLDL CALC 18.2 mg/dL Normal [facility] Comment on above: Performed By: #### T SH, T7, LIPID, CMP #### [facility] [address] [place] [address] [address] Irving Salgado PROF 14(COMP METB)on 022 Albumin [Mass/Vol] 3.7 g/dL Normal 3.4-5.0 [facility] Comment on above: Performed By: #### T SH, T7, LIPID, CMP #### [facility] [address] [place] [address] Dr. Irving Salgado Albumin/Globulin [Mass ratio] 1.0 {ratio} Normal [facility] Comment on above: Performed By: #### T SH, T7, LIPID, CMP #### [facility] [address] [place] [address] Dr. Irving Salgado ALP [Catalytic activity/Vol] 100 U/L Normal 46-116 [facility] Comment on above: Performed By: #### T SH, T7, LIPID, CMP #### [facility] [address] [place] [address] Dr. Irving Salgado ALT [Catalytic activity/Vol] 17 U/L Normal 14-59 [facility] Comment on above: Performed By: #### T SH, T7, LIPID, CMP #### [facility] [address] [place] [address] Dr. Irving Salgado Anion gap [Moles/Vol] 10.1 mmol/L Normal [facility] Comment on above: Performed By: #### T SH, T7, LIPID, CMP #### [facility] [address] [place] [address] Dr. Irving Salgado AST [Catalytic activity/Vol] 15 U/L Normal 15-37 [facility] Comment on above: Performed By: #### T SH, T7, LIPID, CMP #### [facility] [address] [place] [address] Dr. Irving Salgado Bilirubin [Mass/Vol] 0.5 mg/dL Normal 0.2-1.0 [facility] Comment on above: Performed By: #### T SH, T7, LIPID, CMP #### [facility] [address] [place] [address] [address] Irving Salgado Calcium [Mass/Vol] 9.3 mg/dL Normal 8.5-10.1 [facility] Comment on above: Performed By: #### T SH, T7, LIPID, CMP #### [facility] [address] [place] [address] [address] Irving Salgado Chloride [Moles/Vol] 102 mmol/L Normal 98-107 [facility] Comment on above: Performed By: #### T SH, T7, LIPID, CMP #### [facility] [address] [place] [address] Dr. Irving Salgado CO2 [Moles/Vol] 30.1 mmol/L Normal 21.0-32.0 [facility] Comment on above: Performed By: #### T SH, T7, LIPID, CMP #### [facility] [address] [place] [address] Dr. Irving Salgado Creatinine [Mass/Vol] 0.93 mg/dL Normal 0.55-1.02 [facility] Comment on above: Performed By: #### T SH, T7, LIPID, CMP #### [facility] [address] [place] [address] Dr. Irving Salgado EGFR-AF UGANDAN >60 Normal >=60 [facility] Comment on above: Performed By: #### T SH, T7, LIPID, CMP #### [facility] [address] [place] [address] Dr. Irving Salgado EGFR-NON AF UGANDAN >60 Normal >=60 [facility] Comment on above: Performed By: #### T SH, T7, LIPID, CMP #### [facility] [address] [place] [address] [address] Irving Salgado Globulin (S) [Mass/Vol] 3.7 g/dL Normal [facility] Comment on above: Performed By: #### T SH, T7, LIPID, CMP #### [facility] [address] [place] [address] Dr. Irving Salgado Glucose [Mass/Vol] 92 mg/dL Normal 74-106 [facility] Comment on above: Performed By: #### T SH, T7, LIPID, CMP #### [facility] [address] [place] [address] [address] Irving Salgado Potassium [Moles/Vol] 4.2 mmol/L Normal 3.5-5.1 [facility] Comment on above: Performed By: #### T SH, T7, LIPID, CMP #### [facility] [address] [place] [address] Dr. Irving Salgado Protein [Mass/Vol] 7.4 g/dL Normal 6.4-8.2 [facility] Comment on above: Performed By: #### T SH, T7, LIPID, CMP #### [facility] [address] [place] [address] Dr. Irving Salgado Sodium [Moles/Vol] 138 mmol/L Normal 136-145 [facility] Comment on above: Performed By: #### T SH, T7, LIPID, CMP #### [facility] [address] [place] [address] Dr. Irving Salgado Urea nitrogen [Mass/Vol] 18.0 mg/dL Normal 7.0-18.0 [facility] Comment on above: Performed By: #### T SH, T7, LIPID, CMP #### [facility] [address] [place] [address] Dr. Irving Salgado Urea nitrogen/Creatinine [Mass ratio] 19.4 mg/mg Normal [facility] Comment on above: Performed By: #### T SH, T7, LIPID, CMP #### [facility] [address] [place] [address] Dr. Irving Salgado TSHon 01-04-2022 TSH 2.920 uIU/mL Normal 0.358-3.740 [facility] Comment on above: Performed By: #### T SH, T7, LIPID, CMP #### [facility] [address] [place] [address] Dr. Irving Salgado XR Foot Complete Right*on XR Foot Complete Right* CLINICAL HISTORY: Pain COMPARISON: None available. FINDINGS: AP, lateral and oblique views of the left foot demonstrate no evidence of a fracture, dislocation, bone or joint abnormality. There is a small plantar calcaneal spur. IMPRESSION: NEGATIVE LEFT FOOT. Report reported and signed by CARINA VIZCARRA on 10/05/2021 1331 Normal [facility] [employer] Coding Summary.on 05-23-2021 Coding Summary. CD:[id number] Gh0bWw+PGhlYWQ+PE1FV IOnH73vvRYywD3HP0cJG R1FYKFNVOKJQM4OYB3pd WY7HWjjU6SoeySr QpukmDBwBJ11ZYs1WGX0 nSnkDMtlpI9myPDgW8r6 QvQmNL77gY04OWsvCOJo DqS5ElOugdzfdVUs Q0cyClKcaWDiEtx+PHRh YmxlIHdpZHRoPScxMDAl SxMjpEuaQY4eBk2mPQRf LWNvbGxhcHNlOiBj f4gsYGJbKRnwIS0spCfh A6MrkDE0ADPxr1u8Hq38 dHI+AXYcIXR1iFnwLKnp w657VuPqf2gqPVP6 aRWyAJgbXIM9W50eb7G6 SDRfSOPtTZF4lMJ8lM7m aAdjhbkzM7BomMIsVdR4 SDX4zTTwgG5lbIhd avltbJ5pLpm+D41NOI4L BDZAXM0XQal2C5SsBuav dHI+UM94SOCxEE54gCJs kPEdt9ndrGz7UlEh KSPjWSI7uZrtRNfnc8Os RVWpX53mqLAan7M3ITPj yYszzGJyWnAhlIU9oV8o XVvttjkbg0asujvq Ltdcw2yrfl96qU34A61y JGayZPBhXUN2CQOsOBRr sUgenx4ueS2qVy8+IDxj u6zpp9disLl8YiKt TCNyoeZpcGihKKW3x1Ws Pw44M4PvlQhcu6FdRix2 bc57mUXar8R8wOM0KArw YZLyxT5hWEqiDkA0 JUZqGyHyrF53eCYtDOvb Ga8dyBskgExwNO2jNQSg qaliBVWyyC8xGTSksEId oDyqWS0iCWBeprdz a874AeVvAXB7MBOqnAWo D9YqkZ7bDoOtQIHnLKLw K1LoqXRnVUgpB272XQmf IfJ8OXOzkhAkH7Mo GWLgaNfnWlN5l8L0Qn8Q d3AdipnvKXE9PBgfOOC2 OnDxJjRiEjC1J3TpUby1 LRCfrZmjUS2fS7Ks SWVvrcvtumztqYB0EWXd GUXgrI81kCIfGBkgWh3o p9T2e857FIVuJRZbzI18 Bh8krHlqZCUlxBTU nG4gzuhzh1mdoxkhYtNk ODKvGCq6PSt9CGMdnZdl JgQzOIS6LnW5RET2vANz lE5xiGnuhoydjH1o Oyc+K86kvS6rGSR3ZDN4 bmmxZAIdyvTeKO89YQ07 K7YzSrdmjVDlpNP+PGRp fxSrtQveFB7oUeAz u9jtn3LnWAbuX8RaNXMd HEtaLzy0FEBzCXX9kFV7 qM4jMAWqATmki2U3cOT0 S0HcmfKacw2pn5oh GHCmOHzuQ27qlWGrg5S1 VDJudQI4ISGuaTdvObYm zT83Tlz+VACwoOrnr2Vi Gfcte1ccj9hlrGu2 IjMwJSIgdmFsaWduPSJ0 o7RlQy20G26eDZgjTPRs IFZmTZLhDQTksSdqeg5b bS0tDf4+PGNvbCB3 lCN8dC4gZPKxRfM9YMvs L114UeGrlVUlBifny8ds m0oubZj5HsZdWDYldwKq yQvuBBG3g7VaPx17 P40xKEzbIJUeWDHxENIh FNEzrLenpi4kzF3iIc2+ DD9bb0nivt56vL85jZY+ BLTgGME0bYjyPGbo OXTdvQ3gNPawZnY2DKLn VfOjwQ87bBEbTXdmJb0g xPznbGxmXT7kGWYfvgxi m400KmQas2yoSSKr wLQdSCvxPGK4U98zd0J3 YJIdWEUmDTE8wHR3sM9l bGlnbjogbGVmdDsgdmVy lHyvDZanXKyzQ202 IHRvcDsnPlBhdGllbnQg ZgDkDKb0S1KrKwn8CPUk tEnqSQ6jyFZpDQinRq9v pXfufTnkJP8wZPDi ukaxt824WzLcq1hjXVKm zJJkQVrqFBO3B75ls4C4 NRRhIKMuVLR2bZT5kM6y bGlnbjogbGVmdDsg vyWyzLjwSUsnQSiuL378 IHRvcDsnPkJpcnRoIERh vPU0JW12IK43mWGez5R4 tRJ0I4LdSLCaocpq ynbinLF7HVBzIDHlxU13 Qw8ioZshMq6wFLQgOKI6 KVYsrBKsK6QbrZ8fJkEl NGTsVZIbE8YcvSDv SIqmW206EVvtRpK7UTVr ijNbN8NlYKKtaEbiXgP2 e2W0Ny2BH1H0KS23SS39 kGSge0W4xKH5C5Ll CPLxpynnotsfvRS0YSPo PLKczP93Zn7wsLahFo2z GPGwNCC2BCHpwXQqV2Ln tP9aHyUeHFZlRPYu K3MfdVMyMPwaY293GHdg BgM1UISjxeCfT9AzROCz dNzeSaQ8l1D2Rj4LICm6 QD13JJ56eHHft7P9 iGL1L3OxDDZsueetcorg xLG1AUTiSDVslS22Vy9f jXipCp0nFNGwONO2CYYk yYCtO7WavS0dNxOn HTBkQBOhF0ZpoNSkTOus Q957WKsgNtJ2VBPawmNa F6LhUAVyxNqyYiB0p8D1 Ld7QCECbQC36QKK1 hUO6GA29WJ20V7SpAxsn dGFibGU+PHRhYmxlIHdp ZHRoPScxMDAlJyBzdHls AK1tAn3gLMUiMWCx lAzckYMaEjHmp7hdAMGk ODjqRC0yhIwsW6HxjCE1 CIJcw1w5Km37T66kY0Yq dXA+PFLdkNX7pRJ3 aR9lDtIfMyF5DDbvN387 KdXliCStGvelf7ujq9wk rJs2YpT9YLUburOxbKzy BDB6f0XxPf34B73o IHdpZHRoPSIxNSUiIHZh hEidma2bgZ1iKi8+PGNv eRS5dWN5kN5fChVsBaO4 RNtcW023DnPwcKTa Lfmbz7kye4bvaGw3TkIq XRZoohAqmPxzTWJ8m0Ps Zn45Q2DgeNqam9RtPri6 tb59kOMfy6Z3vYW7 N0TnSRVlrtmloHQieSqj WB2sYTZkjgpfUCFeqE7j SZKfA5j6MaXoNcI5MSts S5HamuE4SXMyqDEj NHgwGZW0G22fu5Z3MRYj ABEtDPZ5uCZ1zE5whMwj bjogbGVmdDsgdmVydGlj VIsmGMphN941BPLk mRmtZDRalP9fZKAreNMh nCusYR9eLVWnkaidJuhV U69XZbdaTJVDDXoGYpXI VK20OX22vWRpy2I8 rRA9K7VeDMQqqvculmhz uDR2IIZsPAPrqX13zUDf JDdvPw9dx9U4v335FKSf HQIixX22Hz6fzEay DIKlyHGLyK3wuyodm8bo yeoqGzPuGYOrLEp7SUe1 JIYasDfdUhLzLLO6HrU2 NEJ6rUGcsS4xrQya gsokiJ5yGpp+MDIvMTYv DLw4RLeapKI+PHRkIHN0 fIfsMLytJOBstB5iWCJf V4m6EfCoOuT2SFsq I1WcINNjlrpjKk82hI0v UrYzSeF7ROdpZ8QqlrP9 WMRqvBAeYFlaTRH6R70m z7N8YXKrTHUjVXJ9 qCS3cT9vtTmyaqblpGCs dDsgdmVydGljYWwtYWxp N230UFKizPjaVgJ8ALos WNPkBV32CS13bJAb x6B2yXW1M6ZbXUWfawhr taohhVH0NQIqCYZqdV70 kQEwSIwzCd0va1F4d989 DGQbJPDqtZ89Zu0j fGsbSKQhsKJPzZ7gyyed r3nxbqctXdVaNWAfYTc1 QQe6XEQudDpsLuZqAWS9 WsU0WWY8tOWrzE4s cQcqutegqX7bStm+RmVt RWkdLH53LU88vHOxx4C5 lTK6K3XuSUXouvcmlehh gBT9TYYjWPSplP97 zVPjYOkoHr9nk7H2e208 QIQmXOHilO09Ws9auYnl MWFgePDYcF6juelhc3qa cjogIzAwMDAwMDt0 ZAj8EGGwoJeqVnQkVJQ8 QpK6LRP0yDQqcS3xkIlr czvjgX7dTdf+TGFiIERy n0Bym0CtUI19NM80 N0TfBywyaWAlbBU+PHRh YmxlIHdpZHRoPScxMDAl IhLqoXqiVV8sJk7tFTJa LWNvbGxhcHNlOiBj l5hkWTPtIGdxQE5rsBaa V6VdmHK6GWRey7l4Ow32 U74lI2RbwOL+PGNvbCB3 xHQ2kI3qXeJpDeF8 UXltK583DsLskQKmZeno l2qoa6ibkMu9ZcCrYLQs pwVltYhtAOQ8x7RdNm60 S79gAJoeGOVlGEOi HVHtHDBsaHbexe1sqE8c Ii8+MOVmeSQ2eAN6mQ1l FqYmEzO6ATyeQ776SdWe qMRxUntgH59fG3Vr dXA+UGQsVhh4OCXgsInq VE3ccUFxJTjsBd4oDLK0 KoUrLiEiXIopQ1ZpDSBe nyohkdmprSS9QWPe YLMcfI69Yo1dpOukVz5a KAMlXJE0WGRakQRmG9Qj mL3nUxAdJADzSADtS0Et cMCnUVvjG484ZUwz YuF7OUFeraGjJ7BgUEMo jWqkMcF6q8S7Gp8OxGte bKLeSQ8sWqVaHRb0T5Up Vfn8MSEpwQgrFC0w qCPoAFacJy8srWddpOwr UE7sOBVbczkjw498XvDy j5mpXAIijICeTKtwJZM0 W12si4H3VONwLUGr YUR2bJU5iR8ptFlmbhyc bGVmdDsgdmVydGljYWwt FEecD915VBAxtDbuBxGK Joa4R8VxTpf9SFHy eXhzVW2tnMCdMAyjCq5p gUaxaUrxKV7uPNXhknug b943YyZfi6fsKEWpyIIw OZflAXP1X78ly3F3 UZVuSSSuAHK2bJE8pH3b bGlnbjogbGVmdDsgdmVy oWimARomKQkmC457XKRw qYwsPy8FPgb1Y6Pa Mcg8ZVItiTrrJF1hmBTt XFsuFa4fhOnolYosFZ1y TUWlwjgdk270WmYyq4lr IDEwcHQgVGltZXM7 I20wj7V6JMDiDFLtPTQ3 mCS9yF8wdSldrxfhtTBx dDsgdmVydGljYWwtYWxp S534LZBqvBamTeUc eWVyOjwvdGQ+PX08ll04 N9EsOhcbXbl3PDJgWRS7 oCY7xW1uAQQgOPsxq8M7 kFF9K3HlklTfaw9q b2xs (more content not included)... Normal [facility] PAP [id number] 05-17-2021 Cytology report Cyto stain Doc (Cvx/Vag) Note Invalid Interpretation Code [facility] Comment on above: Result Comment: TEST S RESULT FLAG UNITS REF RANGE LAB Clinician Provided Cytology Information Source.............[employer] No. of containers..01 ThinPrep Vial DIAGNOSIS: 01 NEGATIVE FOR INTRAEPITHELIAL LESION OR MALIGNANCY. Specimen adequacy: 01 Satisfactory for evaluation. Endocervical and/or squamous metaplastic cells (endocervical component) are present. Performed by: Tran Hernandez, Spa Therapist . 01 Note: Note 01 The Pap [...] <-Panic Low,>-Panic High,A-Abnormal,AA-Critical Abnormal Performed at: [address] [facility] [id number] Geri Mora MD, Performed By: #### 1 [id number] #### [facility] [address] [place] [address] HPV 16+18+31+33+35+39+45 +51+52+56+58+59+66+6 8 DNA Probe+sig amp Ql (Cvx) Negative Invalid Interpretation Code Negative [facility] Comment on above: Result Comment: This nucleic acid amplification test detects fourteen high-risk HPV types (16,18,31,33,35,39,45,51,52,56,58,59,66,68) without differentiation. Performed at: [facility] [id number] MD Morgan Nevarez Performed at: =[facility] [id number] MD Morgan Nevarez Performed By: #### 1 [id number] #### [facility] [address] [place] [address] PAP [id number] 05-11-2021 Collection Technique BRUSH-SPATULA Normal F [facility] Comment on above: Performed By: #### 1 [id number] #### [facility] [address] [place] [address] Gynecological Body Site ENDOCERVIX Normal [facility] Comment on above: Performed By: #### 1 [id number] #### [facility] [address] [place] [address] Physician Orderon 05-11-2021 Physician Order [id number]:127 Normal [facility] Vital Signs Date Time Vital Sign Value Performing Clinician Srikanth gant 02-14-2022 13:06-0500 Heart rate 93 /min MD Vivienne Dia Work Phone: [facility] 02-14-2022 13:06-0500 SaO2% (BldA) [Mass fraction] 95 % MD Vivienne Dia Work Phone: [facility] 02-14-2022 10:50-0500 Body temperature 98.3 [degF] MD Vivienne Dia Work Phone: [facility] 02-14-2022 10:50-0500 Diastolic blood pressure 84 mm[Hg] MD Vivienne Dia Work Phone: [facility] 02-14-2022 10:50-0500 Respiratory rate 20 /min MD Vivienne Dia Work Phone: [facility] 02-14-2022 10:50-0500 Systolic blood pressure 131 mm[Hg] MD Vivienne Dia Work Phone: [facility] 02-14-2022 10:49-0500 Body height 167.64 cm MD Vivienne Dia Work Phone: [facility] 02-14-2022 10:49-0500 Body weight 94.75 kg MD Vivienne Dia Work Phone: [facility] Encounters Encounter Date Encounter Type Care Provider Facility Start: 02-14-2022 End: 02-14-2022 Emergency department patient visit Sim Brianna Facility:[facility] Start: 02-14-2022 End: 02-14-2022 Emergency department patient visit MD Vivienne Dia Work Phone: [facility] Work Phone: Start: 01-12-2022 End: 01-13-[address] VIVIENNE DIA Facility: Start: 01-09-2022 Encounter for genera l adult medical examination without abnormal findings DR VIVIENNE DIA [facility] Start: 01-04-2022 End: 01-05-[address] VIVIENNE DIA Facility:[facility] Start: 01-04-2022 End: 01-05-2022 Encounter for general adult medical examination without abnormal findings DR VIVIENNE DIA Facility:[facility] Start: 05-11-2021 End: 05-11-2021 Lab Drop off Ming Lisa [facility] Procedures Date Procedure Procedure Detail Performing Clinician Start: 02-14-2022 SARS-CoV-2, Influenz a & RSV (PCR) MD Vivienne Dia Work Phone: Start: 02-14-2022 Plain chest X-ray MD Saeed Work Phone: Plan of Treatment Date Care Activity Detail Author Patient Education Acute Bronchitis, Adult (DC) [facility] Work Phone: Patient referral [facility] Work Phone: Payers Date Payer Category Payer Self-pay 1965 Unknown [id number] 1965 Unknown [id number] 1961 Unknown [id number] Unknown [id number] Social History Date Type Detail Facility Tobacco smoking status [facility] Sex Assigned At Female [facility] Start: 02-14-2022 Tobacco smoking stat us NHIS Never smoked tobacco (finding) [facility] Start: 1965 Sex Assigned At Female F [facility] Evaluation + Plan note 05-11-2021 Note Date & Type Note Facility 05-11-2021 Evaluation + Plan note Diagnostic Tests PendingPAP w/HPV 05/11/21 [facility] Evaluation note Note Date & Type Note Facility Evaluation note No assessment information availa ble [facility] Work Phone: Hospital course Narrative Note Date & Type Note Facility Hospital course Narrative No data available for this section [facility] Hospital Discharge instructions Note Date & Type Note Facility Hospital Discharge instructions No data available for this section [facility] Summary Purpose Family History No Family [...] section and content) DATE CREATED AUTHOR 05/24/2021 [facility] DATE CREATED AUTHOR AUTHOR'S ORGANIZ ATION 10/08/2021 [facility] dical Specialist DATE CREATED AUTHOR AUTHOR'S ORGANIZ ATION 01/18/2022 [facility] DATE CREATED AUTHOR AUTHOR'S ORGANIZ ATION 02/27/2022 [facility] Care Teams (unrecognized sec tion and [...] BE BASED ON THE PRIMARY CLINICAL RECORDS. [employer] [facility]. provides no warranty or guarantee of the accuracy or completeness of information in this document.
== END 2024-09-05 09:32 | disposition home or self-care (01) ==
PROVIDERS: PCP Family Medicine; Visit Provider Family Medicine
DX: Z00.00 Encounter for general adult medical examination without abnormal findings (principal)
CPT/HCPCS: 36415; 80053; 80061; 83036; 83525; 83540; 84436; 84443; 84481; 85025